=== PATIENT | female | born 1995 | race Caucasian/White ===

== ENCOUNTER → 2020-04-27 11:15 | Outpatient (CLI) | payer OTHER, SELFPAY ==
[2020-04-27 12:30] LABS: Glucose Challenge Gest 1H 50g 65 mg/dL (70-140)
== END ==
PROVIDERS: Visit Provider Obstetrics & Gynecology
DX: Z34.82 Encounter for supervision of other normal pregnancy, second trimester (principal)
CPT/HCPCS: 82950

== ENCOUNTER 2020-06-18 09:47 | Outpatient (CLI) | payer OTHER, SELFPAY ==
[2020-06-18 10:14] VITALS: BP 123/85; TEMP 36.4; O2SAT 99; BMI 26.4
[2020-06-18 10:25] LABS: Color, Urine Straw (Yellow); Glucose, Dipstick Normal (Normal); Ketone-Dipstick Negative (Negative); Leukocyte Esterase-Dipstick 25 /ul (Negative); Nitrite-Dipstick Negative (Negative); Occult Blood-Urine Negative /ul (Negative); Protein-Dipstick Negative (Negative); Specific Gravity, Urine 1.005 (1.002-1.030); Urine Bilirubin Dipstick Negative (Negative); Urine Clarity Sl. Cloudy (Clear); Urine Urobilinogen Normal (Normal)
--- NOTE | 2020-06-18 11:50 | OB.TRI.HP_ITS ---
- Problem List (1) 35 weeks gestation of Status: Acute (2) Labor, false ([place]) Status: Acute History of Present Illness Date of Service: 06/18/20 Was patient seen by the physician?: Yes Reason For Visit: RULE OUT LABOR Date of Service: 06/18/20 Final KALI: 07/21/20 Gestational age: 35 Weeks and 2 Days History of Present Illness: Woke up with back pain and pressure. Allergies No Known Allergies Allergy (Verified 06/18/20 10:16) Laboratory Studies: Laboratory Tests 06/18/20 Range/Units 10:15 Urine Color Straw (Yellow) Urine Clarity Sl. Cloudy (Clear) Urine pH 7.0 (5.0 - 8.0) Ur Specific [place] 1.005 (1.002-1.030) Urine Protein Negative (Negative) mg/dl Urine Glucose (UA) Normal (Normal) mg/dl Urine Ketones Negative (Negative) mg/dl Urine Occult Blood Negative (Negative) /ul Urine Nitrite Negative (Negative) Urine Bilirubin Negative (Negative) mg/dL Urine Urobilinogen Normal (Normal) mg/dl Ur Leukocyte Esterase 25 H (Negative) /ul Review of Systems Constitutional: Denies: Chills, Fever, Weight Change HEENT: Denies: Head Aches, Sinus Congestion, Sinus Drainage Cardiovascular: Denies: Chest Pain, Palpitations Respiratory: Denies: Cough, Shortness of breath at rest, Sputum production Gastrointestinal: Denies: Abdominal Pain, Nausea, Vomiting Genitourinary: Denies: Dysuria Musculoskeletal: Denies: Joint Pain, Joint Tenderness Skin: Denies: Rash, Wounds Neurological: Denies: Numbness, Tingling, Focal weakness Psychiatric: Denies: Anxiety, Depression, Homicidal Ideations, Suicidal Ideations Hematologic/ Lymphatic: Denies: Easy Bruising, Easy Bleeding Physical Exam Vitals: Vital Signs Temp BP Pulse Ox 97.5 F L 123/85 H 99 06/18/20 10:14 06/18/20 10:14 06/18/20 10:14 General: Alert, Oriented x3, No apparent distress HEENT: Atraumatic, Normocephalic. Negative for: Thyromegaly, Lymphadenopathy Cardiovascular: Regular rate, Regular Rhythm Lungs: Clear to auscultation Abdomen: Bowel Sounds Present, Gravid Neurological: Deep Tendon Reflexes 2+/4 and Symmetrical, Neuro grossly intact ENVIRONMENT COORDINATOR: Normal external genitalia. Negative for: Vulvar lesions Estimated gestational size: Appropriate for gestational size Presentation: Cephalic Cervix Dilation (cm): 0 Station: -3 Effacement (%): 0 NST - FHR Rate Baby A Baseline: 135 Variability:: Moderate, Marked Decelerations:: None NST Reactive:: Yes FHR Category:: Category I Uterine Activity:: Q5-10m irregular Impression/Plan A/P: at 35 weeks gestation here to rule out labor UC Q5-12m irregular, palpating mild NST Category I SVE ft/high/thick on arrival and after 2 hours no cervical change noted UA WNL Educated on hydrating and [place] horn vs real contractions To rest and call if UC get closer and stronger together Discharge home
== END 2020-06-18 12:00 | disposition home or self-care (01) ==
LOC: WPOUT 10:12 → WP 10:13
PROVIDERS: Referring Provider Obstetrics & Gynecology; Visit Provider Obstetrics & Gynecology
DX: O47.03 False labor before 37 completed weeks of gestation, third trimester (principal); Z3A.35 35 weeks gestation of pregnancy
CPT/HCPCS: 59025; 59050; 81002; 99218; G0378

== ENCOUNTER 2020-07-01 04:50 | Outpatient (CLI) | payer OTHER, SELFPAY ==
[2020-07-01 05:05] VITALS: BMI 26.9
[2020-07-01 05:08] VITALS: BP 127/74; PULSE 82; TEMP 36.2; O2SAT 98
--- NOTE | 2020-07-01 07:32 | OB.TRI.HP_ITS ---
<Josee Kam - Last Filed: 07/01/20 21:32> - Problem List (1) 37 weeks gestation of Status: Acute (2) Labor, false ([place]) Status: Acute History of Present Illness Date of Service: 07/01/20 Was patient seen by the physician?: Yes Reason For Visit: R/O Date of Service: 07/01/20 Final KALI: 07/21/20 Gestational age: 37 Weeks and 1 Days History of Present Illness: Reports contractions on and off since yesterday AM. Allergies No Known Allergies Allergy (Verified 07/01/20 05:49) Review of Systems Constitutional: Denies: Chills, Fever, Weight Change HEENT: Denies: Head Aches, Sinus Congestion, Sinus Drainage Cardiovascular: Denies: Chest Pain, Palpitations Respiratory: Denies: Cough, Shortness of breath at rest, Sputum production Gastrointestinal: Denies: Abdominal Pain, Nausea, Vomiting Genitourinary: Denies: Dysuria Musculoskeletal: Denies: Joint Pain, Joint Tenderness Skin: Denies: Rash, Wounds Neurological: Denies: Numbness, Tingling, Focal weakness Psychiatric: Denies: Anxiety, Depression, Homicidal Ideations, Suicidal Ideations Hematologic/ Lymphatic: Denies: Easy Bruising, Easy Bleeding Physical Exam Vitals: Vital Signs Temp Pulse BP Pulse Ox 97.1 F L 82 127/74 H 98 07/01/20 05:08 07/01/20 05:08 07/01/20 05:08 07/01/20 05:08 General: Alert, Oriented x3, No apparent distress HEENT: Atraumatic, Normocephalic. Negative for: Thyromegaly, Lymphadenopathy Cardiovascular: Regular rate, Regular Rhythm Lungs: Clear to auscultation Abdomen: Bowel Sounds Present, Gravid Neurological: Deep Tendon Reflexes 2+/4 and Symmetrical, Neuro grossly intact SOLAR PHOTOVOLTAIC ELECTRICIAN: Normal external genitalia. Negative for: Vulvar lesions Estimated gestational size: Appropriate for gestational size Presentation: Cephalic Cervix Dilation (cm): 1 Station: -3 Effacement (%): 25 NST - FHR Rate Baby A Baseline: 130 Variability:: Moderate Accelerations:: 15 x 15 Decelerations:: None NST Reactive:: Yes FHR Category:: Category I Uterine Activity:: irregular Q5-15m Impression/Plan A/P: at 37 weeks here to rule out labor SVE upon arrival , remains unchanged over the course of 2.5 hours UC irregular Q5-15m NST Category I Educated on [place] horn, false labor and early labor. Work excuse given for today To discharge home. Rest and hydrate. If UC become more regular at least every 7 minutes, lasting 1 minute for at least 1 hour to call. Will download contraction subhash to help time contractions. To call or return with any questions or concerns <Bryson Prasad - Last Filed: 07/03/20 15:56> Physical Exam Vitals: Vital Signs Temp Pulse BP Pulse Ox 97.1 F L 106 H 120/68 98 07/01/20 05:08 07/01/20 15:10 07/01/20 15:10 07/01/20 05:08 Impression/Plan Agree with above, pt with unchanged cervix, reassuring heart tones. Ruled out labor. D/c home with precautions as above
[2020-07-01 15:10] VITALS: BP 120/68; PULSE 106
== END 2020-07-01 07:30 | disposition home or self-care (01) ==
LOC: WPOUT 04:55 → WP 04:55
PROVIDERS: Visit Provider Obstetrics & Gynecology
DX: O47.1 False labor at or after 37 completed weeks of gestation (principal); Z3A.37 37 weeks gestation of pregnancy
CPT/HCPCS: 59025; 59050; 99218; G0378

== ENCOUNTER 2020-07-11 18:30 | Outpatient (CLI) | payer OTHER, SELFPAY ==
[2020-07-11 18:49] VITALS: BMI 27.3
[2020-07-11 19:20] VITALS: BP 134/81; PULSE 99; O2SAT 99
[2020-07-11 19:24] VITALS: TEMP 37.1; O2SAT 99
--- NOTE | 2020-07-11 19:31 | OB.TRI.HP_ITS ---
History of Present Illness Date of Service: 07/11/20 Was patient seen by the physician?: Yes Reason For Visit: Rule out rupture History of Present Illness: Leaking brown fluid into toilet this evening. None since that time. Reports contractions, but these have improved since arrival here. Reports movement. Allergies No Known Allergies Allergy (Verified 07/01/20 05:49) - Pertinent Past Medical History Medical History: Past Medical History (Last Updated 07/11/20 @ 19:[address] Tatiana Prasad, DO) Asthma HSV (herpes simplex virus) anogenital infection Labial cyst Review of Systems Constitutional: Denies: Chills, Fever Eyes: Denies: Blurred vision HEENT: Denies: Head Aches Cardiovascular: Denies: Chest Pain Respiratory: Denies: Shortness of Breath Genitourinary: Denies: Dysuria - + movement. Physical Exam Vitals: Vital Signs Temp Pulse BP Pulse Ox 98.8 F 99 134/81 H 99 07/11/20 19:24 07/11/20 19:20 07/11/20 19:20 07/11/20 19:24 General: Alert, Oriented x3, Cooperative, No apparent distress HEENT: Atraumatic, Normocephalic Lungs: Normal air movement Abdomen: Soft, Non Tender - Gravid Extremities:: No edema Neurological: Cranial nerves II-XII grossly intact MANAGER RESTAURANT: Vulvar lesions - enlarged left labial cyst Cervix Dilation (cm): 2 Station: -3 Effacement (%): 60 NST - FHR Rate Baby A Baseline: 150 Accelerations:: 15 x 15 Decelerations:: None NST Reactive:: Yes Impression/Plan 25 yo at 38.4w, KALI 07/21/20, presenting with leaking brown fluid. Pt complicated by: known labial cyst, history of childhood asthma, hx of HSV on suppression (last outbreak was 4 years ago). Not ruptured. status reassuring. Discharge home with precautions. Next apt is Saturday PM.
[2020-07-11 19:40] LABS: ROM Internal Control Test YES-OK TO RESULT pt. (Internal QC); ROM Patient Test Negative (Negative)
[2020-07-11 20:02] VITALS: BP 125/76; PULSE 92
== END 2020-07-11 21:13 | disposition home or self-care (01) ==
LOC: WPOUT 18:40 → OBT 18:41
PROVIDERS: Visit Provider Student in an Organized Health Care Education/Training Program
DX: Z34.03 Encounter for supervision of normal first pregnancy, third trimester (principal)
CPT/HCPCS: 59025; 59050; 84112; 99218; G0378

== ENCOUNTER 2020-07-13 18:55 | Inpatient (IN) | payer OTHER, SELFPAY ==
[2020-07-13 19:48] VITALS: BP 169/86; PULSE 112
[2020-07-13 19:49] VITALS: BP 147/74; PULSE 105; PULSE 84; TEMP 36.4; O2SAT 97
--- NOTE | 2020-07-13 19:56 | PCM.HP.OB ---
- Problem List (1) 39 weeks gestation of Status: Acute (2) Herpes simplex Status: Acute (3) Bartholin's gland cyst Status: Acute History Date of Admission: 07/13/20 Final KALI: 07/21/20 Final KALI Source: US <20 weeks Gestational age: 39 Weeks and 0 Days History of this : This is a 25 year-old, G [1], P [0], at 38.6 weeks gestational age. Medical History: Medical History (Last Updated 07/11/20 @ 19:[address] Tatiana Prasad, DO) Asthma J45.909 HSV (herpes simplex virus) anogenital infection A60.9 Labial cyst N90.7 Surgical History: Surgical History (Last Updated 07/11/20 @ 21:[address] Tatiana Prasad, DO) H/O wisdom tooth extraction K08.409 [place] teeth removed K08.409 Allergies No Known Allergies Allergy (Verified 07/01/20 05:49) Home Medications: Home Medications Albuterol IH (ProAir) [Proair Hfa] 1 puff INHALATION PRN PRN 06/18/20 Vits [Prenatabs FA ] 1 tab PO DAILY 06/18/20 Valacyclovir HCl [Valtrex] 1,000 mg PO DAILY 07/11/20 Alcohol: None Substance Use Type: Marijuana - 1st trimester Number of Fetus(es): 1 NST - FHR Rate Baby A Baseline: 150 Variability:: Moderate Accelerations:: 15 x 15 Decelerations:: None NST Reactive:: Yes FHR Category:: Category I Uterine Activity:: 1 in 10 minutes History Past Pregnancies: Past Pregnancies: None Labs: Mom's Microbiology 07/13/20 19:45 Perianal Abcess Gram Stain - Pending 07/13/20 19:45 Perianal Abcess Wound Culture - Pending Mom's Problem List Problem Status Onset Code 39 weeks gestation of Acute Z3A.39 Herpes simplex Acute B00.9 Bartholin's gland cyst Acute N75.0 Mom's Labs & Results 07/13/20 07/13/20 07/13/20 20:00 20:00 20:55 WBC 10.3 RBC 3.72 L Hgb 11.1 L Hct 33.4 L MCV 89.8 MCH 29.8 MCHC 33.2 RDW Std Deviation 41.5 RDW Coeff of Ashanti 12.8 Plt Count 326 MPV 10.4 Immature Gran % (Auto) 0.600 Neut % (Auto) 77.8 H Lymph % (Auto) 13.8 L [place] % (Auto) 6.2 Eos % (Auto) 1.4 Baso % (Auto) 0.2 Absolute Neuts (auto) 8.0 H Absolute Lymphs (auto) 1.41 Nucleated RBC % 0 Urine Opiates Screen NEGATIVE Urine Methadone Screen NEGATIVE Ur Barbiturates Screen NEGATIVE Ur Phencyclidine Scrn NEGATIVE Ur Amphetamines Screen NEGATIVE U Methamphetamin-MDMA NEGATIVE U Benzodiazepines Scrn NEGATIVE Urine Cocaine Screen NEGATIVE U Cannabinoids Screen NEGATIVE Ur Drug Screen Comment Blood Type O POSITIVE Antibody Screen NEGATIVE Course Did the patient receive Yes care? Labs Blood Type: O RH: POSITIVE RPR/VDRL/Syphilis Nonreactive Rubella status Immune HbSAg Negative Date Done: 12/17/19 Chlamydia Negative Gonorrhea Negative HIV/AIDS Non-Reactive Group B Strep: Negative Current Obstetrical History Gestational Diabetes No Incompetent Cervix No Infertility No IUGR No Macrosomia No Hypertension/Pre-eclampsia No Placenta Previa/Abruption No PTL/PROM No Uterine anomaly No Oligohydramnios No Polyhydramnios No Multiple gestation No Past Medical History Asthma Yes Diabetes No Hypertension No Heart disease No Mitral valve prolapse No Neurologic/Seizure disorder/ No Migraines Kidney disease No Liver disease No Varicosities No Clotting disorders/Hx of DVT No Thyroid Dysfunction No Other medical diseases No Psychiatric disorders No Major trauma No Abnormal PAP smear No Sleep apnea No Mammogram in the last 2 years No Social History Marital Status: SINGLE Alleged father Manuelito Hx Smoking Yes Smoking Status Former smoker Substance Use Type Marijuana Expected Delivery Method: Spontaneous Vaginal Number of Visits: 12 Review of Systems Constitutional: Denies: Chills, Fever, Weight Change HEENT: Denies: Head Aches, Sinus Congestion, Sinus Drainage Cardiovascular: Denies: Chest Pain, Palpitations Respiratory: Denies: Cough, Shortness of breath at rest, Sputum production Gastrointestinal: Denies: Abdominal Pain, Nausea, Vomiting Genitourinary: Denies: Dysuria Musculoskeletal: Denies: Joint Pain, Joint Tenderness Skin: Reports: - - left bartholin cyst with drainage cultured. Denies: Rash, Wounds Neurological: Denies: Numbness, Tingling, Focal weakness Psychiatric: Denies: Anxiety, Depression, Homicidal Ideations, Suicidal Ideations Hematologic/ Lymphatic: Denies: Easy Bruising, Easy Bleeding Physical Exam Vitals: Vital Signs Pulse BP 105 H 147/74 H 07/13/20 19:49 07/13/20 19:49 General: Alert, Oriented x3, No apparent distress HEENT: Atraumatic, Normocephalic. Negative for: Thyromegaly, Lymphadenopathy Cardiovascular: Regular rate, Regular Rhythm Lungs: Clear to auscultation Abdomen: Bowel Sounds Present, Gravid Neurological: Deep Tendon Reflexes 2+/4 and Symmetrical, Neuro grossly intact GAMBLING SUPERVISOR: Normal external genitalia. Negative for: Vulvar lesions Estimated gestational size: Appropriate for gestational size Presentation: Cephalic Cervix Dilation (cm): 1.5 Station: -2 Effacement (%): 50 Assessment/Plan All Active Problems (Last Updated 07/11/20 @ 19:[address] Tatiana Prasad, DO) 35 weeks gestation of (Acute) Labor, false ([facility]) (Acute) 37 weeks gestation of (Acute) 39 weeks gestation of (Acute) Herpes simplex (Acute) Bartholin's gland cyst (Acute) A/P: This is a 25 year-old, G [1], P [0], at 38.6 weeks gestational age. Elective IOL for maternal discomfort with left bartholin gland cyst infection IV PCN for antibiotic coverage SVE 1.5/50/-2 soft midposition Irregular contractions NST Category I Cytotec PO for IOL Epidural planned for labor MD plans to perform marsupialization of cyst after delivery Expect Procedure Criteria Procedure Type: Elective COVID Risk Discussion: The surgeon/proceduralist and patient have discussed in detail the risk of exposure to and/or potential harm posed by the COVID-19 virus with having a surgery/procedure at this time versus the risk of delaying the surgery/procedure. It is not possible to know either the risk of delaying the surgery or procedure or chance of getting an infection with perfect accuracy, but a joint decision was made between the patient and the surgeon/proceduralist to proceed at this time with the scheduled surgery/procedure as indicated on the consent form.
[2020-07-13] MEDS: Lactated Ringers 1,000 ML 50 ML IV (20:00)
[2020-07-13 20:20] VITALS: BMI 27.4
[2020-07-13] MEDS: miSOPROStol 25 MCG TABLET PO (20:30)
[2020-07-13 20:37] LABS: Absolute Lymphocyte Count 1.41 X10^3/uL (0.83-4.51); Basophil# 0.02 X10^3/uL; Basophil% 0.2 % (0-1); Eosinophil# 0.14 X10^3/uL; Eosinophils% 1.4 % (0-5); Hematocrit 33.4 % (37-47); Hemoglobin 11.1 g/dL (12.0-15.0); Lymphocyte # 1.41 X10^3/ul (4.0); Lymphocyte % 13.8 % (19-41); Mean Corp Hgb Conc 33.2 g/dL (32-36); Mean Corpuscular Hgb 29.8 pg (27.0-32.0); Mean Corpuscular Volume 89.8 fL (81-99); Mean Platelet Vol. 10.4 fl (6.2-12.0); Monocyte# 0.64 X10^3/uL; Monocyte% 6.2 % (0-10); NRBC Flagged by Analyzer 0 % (0-5); Neutrophil # 7.98 X10^3/uL (2.7-7.7); Neutrophil % 77.8 % (47-70); Platelet Count 326 K/mm3 (150-450); RBC Distribution Width CV 12.8 % (11.6-14.6); RBC Distribution Width SD 41.5 fl (35.1-43.9); Red Blood Count 3.72 M/mm3 (4.2-5.4); White Blood Count 10.3 K/mm3 (4.4-11.0)
[2020-07-13 22:02] LABS: Amphetamine Urine VISTA NEGATIVE (<1000 ng/mL); Barbiturate Urine VISTA NEGATIVE (< 200 ng/mL); Benzodiazepine Urine VISTA NEGATIVE (< 200 ng/mL); Cocaine Urine VISTA NEGATIVE (< 300 ng/mL); Ecstacy Urine VISTA NEGATIVE (< 500 ng/mL); Methadone Urine VISTA NEGATIVE (< 300 ng/mL); PCP Urine VISTA NEGATIVE (< 25 ng/mL); THC Urine VISTA NEGATIVE (< 50 ng/mL); Vista UDS pH Range 6
[2020-07-14] VITALS (32 sets, daily range): BP systolic 110–145; BP diastolic 59–82; PULSE 73–116; TEMP 36–37.3; O2SAT 82–100
[2020-07-14] MEDS: Morphine 4 MG/ML Syringe IV (00:22)
[2020-07-14] MEDS: miSOPROStol 25 MCG TABLET PO (00:22)
--- NOTE | 2020-07-14 08:19 | PCM.PN.OB ---
Patient Problems: Active and Suspected Problems (Last Updated 07/11/20 @ 19:[address] Tatiana Prasad, DO) 39 weeks gestation of (Acute) Herpes simplex (Acute) Bartholin's gland cyst (Acute) Subjective: Hasn't gotten any sleep overnight, so very tired. Contractions are not that painful 3/10 at their worst and they have spaced out. Would still like the epidural when possible. Objective: VSS. SVE 2/70/-2 soft midposition with outer os being very thin. UC Q5-7m irregular. FHR baseline 130, +accels, -decels, moderate variability. Bartholin cyst appears stable. - Physical Exam Vitals/I&O's: Vital Signs Temp Pulse BP Pulse Ox 97.7 F L 81 131/70 H 98 07/14/20 07:18 07/14/20 07:19 07/14/20 07:19 07/14/20 07:18 Weight: 74.843 kg Body Mass Index (BMI) 27.4 Intake and Output for Last 24 Hours 07/12/20 07/13/20 07/14/20 23:59 23:59 23:59 Intake Total 150 / 150 100 / 100 Output Total 400 / 400 Balance 150 / 150 -300 / -300 General: Alert, Oriented x3, Cooperative HEENT: Atraumatic, PERRLA, EOMI, Normocephalic Neck: Supple, No JVD, Negative Carotid Bruits Lungs: Clear to auscultation, Normal air movement Cardiovascular: Regular rate, No murmurs Abdomen: Bowel Sounds Present, Soft, Non Tender Extremities: No edema, Capillary Refill Less than 3 Seconds Skin: No rashes, No breakdown Musculoskeletal: No Tenderness to Palpation of Joints or Extremities Neurological: Cranial nerves II-XII grossly intact Psych/Mental Status: Normal Affect, Appropriate Laboratory Results 07/13/20 20:00: WBC 10.3, RBC 3.72 L, Hgb 11.1 L, Hct 33.4 L, MCV 89.8, MCH 29.8, MCHC 33.2, RDW Std Deviation 41.5, RDW Coeff of [place] 12.8, Plt Count 326, MPV 10.4, Immature Gran % (Auto) 0.600, Neut % (Auto) 77.8 H, Lymph % (Auto) 13.8 L, [place] % (Auto) 6.2, Eos % (Auto) 1.4, Baso % (Auto) 0.2, Absolute Neuts (auto) 8.0 H, Absolute Lymphs (auto) 1.41, Nucleated RBC % 0 07/13/20 20:00: Blood Type O POSITIVE, Antibody Screen NEGATIVE 07/13/20 20:55: Urine Opiates Screen NEGATIVE, Urine Methadone Screen NEGATIVE, Ur Barbiturates Screen NEGATIVE, Ur Phencyclidine Scrn NEGATIVE, Ur Amphetamines Screen NEGATIVE, U Methamphetamin-MDMA NEGATIVE, U Benzodiazepines Scrn NEGATIVE, Urine Cocaine Screen NEGATIVE, U Cannabinoids Screen NEGATIVE, Ur Drug Screen Comment Current Medications Acetaminophen (Tylenol) 325 - 650 mg PO Q4H PRN PRN PRN Reason: Pain Score 1-3/10 Al Hydroxide/Mg Hydroxide (Mylanta Ii) 15 - 30 ml PO Q4H PRN PRN PRN Reason: INDIGESTION Citric Acid/Sodium Citrate (Bicitra) 30 ml PO X1 PRN PRN Reason: Section Fentanyl Citrate (Sublimaze (100mcg Ampule)) 25 - 50 mcg IV Q2H PRN PRN PRN Reason: Pain Score 4-10/10 Lactated Ringer's () 500 mls @ 999 mls/hr IV .Q31M PRN PRN Reason: Epidural Lactated Ringer's () 500 mls @ 999 mls/hr IV .Q31M PRN PRN Reason: Corrective Measures Lactated Ringer's () 1,000 mls @ 50 mls/hr IV .Q20H [facility] Last Infusion: 07/13/20 22:00 Dose: 0 mls/hr Documented by: Penicillin G Potassium/Dextrose (Penicillin G Potassium) 3 mu in 50 mls @ 100 mls/hr IV Q4H [facility] Last Infusion: 07/14/20 05:06 Dose: Infused Documented by: Oxytocin/Sodium Chloride () 30 units in 500 mls @ 2 mls/hr IV .Q250H [facility] Misoprostol (Cytotec) 25 mcg PO Q4H [facility] Last Admin: 07/14/20 08:05 Dose: Not Given Documented by: Ondansetron HCl (Zofran) 4 mg IV Q4H PRN PRN PRN Reason: NAUSEA Prochlorperazine Edisylate (Compazine Iv) 10 mg IV Q6H PRN PRN PRN Reason: NAUSEA Sodium Chloride () 10 - 40 ml IV X1 PRN PRN Reason: SALINE FLUSH Medical Necessity - Tobacco Use Smoking Status: Former smoker Assessment/Plan All Active Problems (Last Updated 07/11/20 @ 19:[address] Tatiana Prasad, DO) 35 weeks gestation of (Acute) Labor, false ([place]) (Acute) 37 weeks gestation of (Acute) 39 weeks gestation of (Acute) Herpes simplex (Acute) Bartholin's gland cyst (Acute) A/P: SVE only slightly changed UC have spaced out, will start Pitocin NST Category I Plans epidural for pain management Will AROM after epidural is placed Continue IV antibiotics, awaiting cultures from cyst Expect Marsupialization planned by MD attending after delivery
[2020-07-14] MEDS: Oxytocin 30 units/NS 500 ml 30 UNITS/500 ML IV.SOLN IV (08:46)
[2020-07-14] MEDS: Lactated Ringers 1,000 ML 50 ML IV (11:09)
[2020-07-14] MEDS: Lactated Ringers 500 ML 999 ML IV ×2 (11:10→13:22)
--- NOTE | 2020-07-14 12:15 | PCM.PN.OB ---
Patient Problems: Active and Suspected Problems (Last Updated 07/11/20 @ 19:[address] Tatiana Prasad, DO) 39 weeks gestation of (Acute) Herpes simplex (Acute) Bartholin's gland cyst (Acute) Subjective: Contractions are feeling stronger. Ready to get water broke and then wanting the epidural. Objective: SVE 2/70/-2 stretchy. AROM with clear fluid. FHR baseline 140. +accels, - decels, moderate variability. - Physical Exam Vitals/I&O's: Vital Signs Temp Pulse BP Pulse Ox 97.3 F L 92 130/74 H 100 07/14/20 14:35 07/14/20 14:35 07/14/20 14:35 07/14/20 14:35 Weight: 74.843 kg Body Mass Index (BMI) 27.4 Intake and Output for Last 24 Hours 07/12/20 07/13/20 07/14/20 23:59 23:59 23:59 Intake Total 150 / 150 2530.30 / 2530.30 Output Total 1250 / 1250 Balance 150 / 150 1280.30 / 1280.30 General: Alert, Oriented x3, Cooperative HEENT: Atraumatic, PERRLA, EOMI, Normocephalic Neck: Supple, No JVD, Negative Carotid Bruits Lungs: Clear to auscultation, Normal air movement Cardiovascular: Regular rate, No murmurs Abdomen: Bowel Sounds Present, Soft, Non Tender Extremities: No edema, Capillary Refill Less than 3 Seconds Skin: No rashes, No breakdown Musculoskeletal: No Tenderness to Palpation of Joints or Extremities Neurological: Cranial nerves II-XII grossly intact Psych/Mental Status: Normal Affect, Appropriate Microbiology Past 72 Hours 07/13/20 19:45 Perianal Abcess Gram Stain - Final 07/13/20 19:45 Perianal Abcess Wound Culture - Preliminary Mixed Gram Positive Organisms Laboratory Results 07/13/20 20:00: WBC 10.3, RBC 3.72 L, Hgb 11.1 L, Hct 33.4 L, MCV 89.8, MCH 29.8, MCHC 33.2, RDW Std Deviation 41.5, RDW Coeff of [place] 12.8, Plt Count 326, MPV 10.4, Immature Gran % (Auto) 0.600, Neut % (Auto) 77.8 H, Lymph % (Auto) 13.8 L, [place] % (Auto) 6.2, Eos % (Auto) 1.4, Baso % (Auto) 0.2, Absolute Neuts (auto) 8.0 H, Absolute Lymphs (auto) 1.41, Nucleated RBC % 0 07/13/20 20:00: Blood Type O POSITIVE, Antibody Screen NEGATIVE 07/13/20 20:55: Urine Opiates Screen NEGATIVE, Urine Methadone Screen NEGATIVE, Ur Barbiturates Screen NEGATIVE, Ur Phencyclidine Scrn NEGATIVE, Ur Amphetamines Screen NEGATIVE, U Methamphetamin-MDMA NEGATIVE, U Benzodiazepines Scrn NEGATIVE, Urine Cocaine Screen NEGATIVE, U Cannabinoids Screen NEGATIVE, Ur Drug Screen Comment Current Medications Acetaminophen (Tylenol) 325 - 650 mg PO Q4H PRN PRN PRN Reason: Pain Score 1-3/10 Al Hydroxide/Mg Hydroxide (Mylanta Ii) 15 - 30 ml PO Q4H PRN PRN PRN Reason: INDIGESTION Citric Acid/Sodium Citrate (Bicitra) 30 ml PO X1 PRN PRN Reason: Section Ephedrine Sulfate () 10 mg IV Q10M PRN PRN Reason: hypotension Ephedrine Sulfate () 10 mg IM Q30M PRN PRN Reason: hypotension Fentanyl Citrate (Sublimaze (100mcg Ampule)) 25 - 50 mcg IV Q2H PRN PRN PRN Reason: Pain Score 4-10/10 Fentanyl/Bupivacaine/Sodium Chlor () 0 ml EPIDURAL UD COUNTS INCLUDE 234 BEDS AT THE [facility]; Protocol Last Admin: 07/14/20 12:40 Dose: 100 ml Documented by: Lactated Ringer's () 500 mls @ 999 mls/hr IV .Q31M PRN PRN Reason: Epidural Last Infusion: 07/14/20 11:41 Dose: Infused Documented by: Lactated Ringer's () 500 mls @ 999 mls/hr IV .Q31M PRN PRN Reason: Corrective Measures Last Infusion: 07/14/20 13:53 Dose: Infused Documented by: Lactated Ringer's () 1,000 mls @ 50 mls/hr IV .Q20H [facility] Last Infusion: 07/14/20 14:31 Dose: 0 mls/hr Documented by: Oxytocin/Sodium Chloride () 30 units in 500 mls @ 2 mls/hr IV .Q250H [facility] Last Infusion: 07/14/20 14:32 Dose: 8 mls/hr Documented by: Naloxone HCl 4 mg/ Dextrose 504 mls @ 0 mls/hr IV .Q0M PRN; Protocol PRN Reason: To maintain Resp. rate >10 Clindamycin Phosphate 600 mg/ (Dextrose) 54 mls @ 100 mls/hr IV Q8 [facility] Last Admin: 07/14/20 14:31 Dose: 100 mls/hr Documented by: Naloxone HCl (Narcan) 0.02 mg IV Q1M PRN PRN Reason: RR< 10 AND PT UNRESPONSIVE Ondansetron HCl (Zofran) 4 mg IV Q4H PRN PRN PRN Reason: NAUSEA Prochlorperazine Edisylate (Compazine Iv) 10 mg IV Q6H PRN PRN PRN Reason: NAUSEA Sodium Chloride () 10 - 40 ml IV X1 PRN PRN Reason: SALINE FLUSH Medical Necessity - Tobacco Use Smoking Status: Former smoker Assessment/Plan All Active Problems (Last Updated 07/11/20 @ 19:[address] Tatiana Prasad, DO) 35 weeks gestation of (Acute) Labor, false ([place]) (Acute) 37 weeks gestation of (Acute) 39 weeks gestation of (Acute) Herpes simplex (Acute) Bartholin's gland cyst (Acute) A/P: NST Category I UC Q5m AROM with clear fluid Pitocin at 4u Planning epidural for pain management Will have RN recheck SVE in 2 hours
[2020-07-14] MEDS: fentaNYL-bupivacaine (epidural) 100 ML BAG EPIDURAL ×3 (12:40→21:19)
--- NOTE | 2020-07-14 18:20 | PCM.PN.OB ---
Patient Problems: Active and Suspected Problems (Last Updated 07/11/20 @ 19:[address] Tatiana Prasad, DO) 39 weeks gestation of (Acute) Herpes simplex (Acute) Bartholin's gland cyst (Acute) Subjective: Not feeling any pain. Denies concerns. Objective: VSS. SVE 3.5-4/90/0. UC Q2-3m. FHR baseline 135, +accels, -decels, moderate variability with Pitocin shut off. - Physical Exam Vitals/I&O's: Vital Signs Temp Pulse BP Pulse Ox 98.3 F 96 128/78 H 98 07/14/20 17:32 07/14/20 17:32 07/14/20 17:32 07/14/20 17:32 Weight: 74.843 kg Body Mass Index (BMI) 27.4 Intake and Output for Last 24 Hours 07/12/20 07/13/20 07/14/20 23:59 23:59 23:59 Intake Total 150 / 150 3102.97 / 3102.97 Output Total 2550 / 2550 Balance 150 / 150 552.97 / 552.97 General: Alert, Oriented x3, Cooperative HEENT: Atraumatic, PERRLA, EOMI, Normocephalic Neck: Supple, No JVD, Negative Carotid Bruits Lungs: Clear to auscultation, Normal air movement Cardiovascular: Regular rate, No murmurs Abdomen: Bowel Sounds Present, Soft, Non Tender Extremities: No edema, Capillary Refill Less than 3 Seconds Skin: No rashes, No breakdown Musculoskeletal: No Tenderness to Palpation of Joints or Extremities Neurological: Cranial nerves II-XII grossly intact Psych/Mental Status: Normal Affect, Appropriate Microbiology Past 72 Hours 07/13/20 19:45 Perianal Abcess Gram Stain - Final 07/13/20 19:45 Perianal Abcess Wound Culture - Preliminary Mixed Gram Positive Organisms Laboratory Results 07/13/20 20:00: WBC 10.3, RBC 3.72 L, Hgb 11.1 L, Hct 33.4 L, MCV 89.8, MCH 29.8, MCHC 33.2, RDW Std Deviation 41.5, RDW Coeff of [place] 12.8, Plt Count 326, MPV 10.4, Immature Gran % (Auto) 0.600, Neut % (Auto) 77.8 H, Lymph % (Auto) 13.8 L, [place] % (Auto) 6.2, Eos % (Auto) 1.4, Baso % (Auto) 0.2, Absolute Neuts (auto) 8.0 H, Absolute Lymphs (auto) 1.41, Nucleated RBC % 0 07/13/20 20:00: Blood Type O POSITIVE, Antibody Screen NEGATIVE 07/13/20 20:55: Urine Opiates Screen NEGATIVE, Urine Methadone Screen NEGATIVE, Ur Barbiturates Screen NEGATIVE, Ur Phencyclidine Scrn NEGATIVE, Ur Amphetamines Screen NEGATIVE, U Methamphetamin-MDMA NEGATIVE, U Benzodiazepines Scrn NEGATIVE, Urine Cocaine Screen NEGATIVE, U Cannabinoids Screen NEGATIVE, Ur Drug Screen Comment Current Medications Acetaminophen (Tylenol) 325 - 650 mg PO Q4H PRN PRN PRN Reason: Pain Score 1-3/10 Al Hydroxide/Mg Hydroxide (Mylanta Ii) 15 - 30 ml PO Q4H PRN PRN PRN Reason: INDIGESTION Citric Acid/Sodium Citrate (Bicitra) 30 ml PO X1 PRN PRN Reason: Section Ephedrine Sulfate () 10 mg IV Q10M PRN PRN Reason: hypotension Ephedrine Sulfate () 10 mg IM Q30M PRN PRN Reason: hypotension Fentanyl Citrate (Sublimaze (100mcg Ampule)) 25 - 50 mcg IV Q2H PRN PRN PRN Reason: Pain Score 4-10/10 Fentanyl/Bupivacaine/Sodium Chlor () 0 ml EPIDURAL UD [facility]; Protocol Last Admin: 07/14/20 16:49 Dose: 100 ml Documented by: Lactated Ringer's () 500 mls @ 999 mls/hr IV .Q31M PRN PRN Reason: Epidural Last Infusion: 07/14/20 11:41 Dose: Infused Documented by: Lactated Ringer's () 500 mls @ 999 mls/hr IV .Q31M PRN PRN Reason: Corrective Measures Last Infusion: 07/14/20 13:53 Dose: Infused Documented by: Lactated Ringer's () 1,000 mls @ 50 mls/hr IV .Q20H [facility] Last Infusion: 07/14/20 15:04 Dose: 200 mls/hr Documented by: Oxytocin/Sodium Chloride () 30 units in 500 mls @ 2 mls/hr IV .Q250H [facility] Last Infusion: 07/14/20 17:28 Dose: 2 mls/hr Documented by: Naloxone HCl 4 mg/ Dextrose 504 mls @ 0 mls/hr IV .Q0M PRN; Protocol PRN Reason: To maintain Resp. rate >10 Clindamycin Phosphate 600 mg/ (Dextrose) 54 mls @ 100 mls/hr IV Q8 [facility] Last Infusion: 07/14/20 15:04 Dose: Infused Documented by: Naloxone HCl (Narcan) 0.02 mg IV Q1M PRN PRN Reason: RR< 10 AND PT UNRESPONSIVE Ondansetron HCl (Zofran) 4 mg IV Q4H PRN PRN PRN Reason: NAUSEA Prochlorperazine Edisylate (Compazine Iv) 10 mg IV Q6H PRN PRN PRN Reason: NAUSEA Sodium Chloride () 10 - 40 ml IV X1 PRN PRN Reason: SALINE FLUSH Medical Necessity - Tobacco Use Smoking Status: Former smoker Assessment/Plan All Active Problems (Last Updated 07/11/20 @ 19:[address] Tatiana Prasad, DO) 35 weeks gestation of (Acute) Labor, false (Ba-Horn) (Acute) 37 weeks gestation of (Acute) 39 weeks gestation of (Acute) Herpes simplex (Acute) Bartholin's gland cyst (Acute) A/P: NST Category I with Pitocin turned off UC Q2-3m SVE 3.5-490/0 Will wait 2H and recheck SVE Updated Dr. Loya attending Expect
[2020-07-14] MEDS: Lactated Ringers 1,000 ML 200 ML IV (19:33)
--- NOTE | 2020-07-14 22:20 | PN.OBGYN_ITS ---
Patient Problems: Active and Suspected Problems (Last Updated 07/11/20 @ 19:[address] Tatiana Prasad, DO) 39 weeks gestation of (Acute) Herpes simplex (Acute) Bartholin's gland cyst (Acute) Subjective: Comfortable right now. Would like to sleep. Objective: VSS. SVE 5-6/90/0. FHR baseline 140, +accels, -decels, moderate variability. - Physical Exam Vitals/I&O's: Vital Signs Temp Pulse BP Pulse Ox 99.1 F 116 H 125/74 H 100 07/14/20 21:26 07/14/20 21:26 07/14/20 21:26 07/14/20 21:26 Weight: 74.843 kg Body Mass Index (BMI) 27.4 Intake and Output for Last 24 Hours 07/12/20 07/13/20 07/14/20 23:59 23:59 23:59 Intake Total 150 / 150 5080.20 / 5080.20 Output Total 3150 / 3150 Balance 150 / 150 1930.20 / 1930.20 General: Alert, Oriented x3, Cooperative HEENT: Atraumatic, PERRLA, EOMI, Normocephalic Neck: Supple, No JVD, Negative Carotid Bruits Lungs: Clear to auscultation, Normal air movement Cardiovascular: Regular rate, No murmurs Abdomen: Bowel Sounds Present, Soft, Non Tender Extremities: No edema, Capillary Refill Less than 3 Seconds Skin: No rashes, No breakdown Musculoskeletal: No Tenderness to Palpation of Joints or Extremities Neurological: Cranial nerves II-XII grossly intact Psych/Mental Status: Normal Affect, Appropriate Microbiology Past 72 Hours 07/13/20 19:45 Perianal Abcess Gram Stain - Final 07/13/20 19:45 Perianal Abcess Wound Culture - Preliminary Mixed Gram Positive Organisms Current Medications Acetaminophen (Tylenol) 325 - 650 mg PO Q4H PRN PRN PRN Reason: Pain Score 1-3/10 Al Hydroxide/Mg Hydroxide (Mylanta Ii) 15 - 30 ml PO Q4H PRN PRN PRN Reason: INDIGESTION Citric Acid/Sodium Citrate (Bicitra) 30 ml PO X1 PRN PRN Reason: Section Ephedrine Sulfate () 10 mg IV Q10M PRN PRN Reason: hypotension Ephedrine Sulfate () 10 mg IM Q30M PRN PRN Reason: hypotension Fentanyl Citrate (Sublimaze (100mcg Ampule)) 25 - 50 mcg IV Q2H PRN PRN PRN Reason: Pain Score 4-10/10 Fentanyl/Bupivacaine/Sodium Chlor () 0 ml EPIDURAL UD [facility]; Protocol Last Admin: 07/14/20 21:19 Dose: 100 ml Documented by: Lactated Ringer's () 500 mls @ 999 mls/hr IV .Q31M PRN PRN Reason: Epidural Last Infusion: 07/14/20 11:41 Dose: Infused Documented by: Lactated Ringer's () 500 mls @ 999 mls/hr IV .Q31M PRN PRN Reason: Corrective Measures Last Infusion: 07/14/20 13:53 Dose: Infused Documented by: Lactated Ringer's () 1,000 mls @ 50 mls/hr IV .Q20H [facility] Last Infusion: 07/14/20 22:07 Dose: 0 mls/hr Documented by: Oxytocin/Sodium Chloride () 30 units in 500 mls @ 2 mls/hr IV .Q250H [facility] Last Infusion: 07/14/20 18:10 Dose: 0 mls/hr Documented by: Naloxone HCl 4 mg/ Dextrose 504 mls @ 0 mls/hr IV .Q0M PRN; Protocol PRN Reason: To maintain Resp. rate >10 Clindamycin Phosphate 600 mg/ (Dextrose) 54 mls @ 100 mls/hr IV Q8 [facility] Last Admin: 07/14/20 22:07 Dose: 100 mls/hr Documented by: Naloxone HCl (Narcan) 0.02 mg IV Q1M PRN PRN Reason: RR< 10 AND PT UNRESPONSIVE Ondansetron HCl (Zofran) 4 mg IV Q4H PRN PRN PRN Reason: NAUSEA Prochlorperazine Edisylate (Compazine Iv) 10 mg IV Q6H PRN PRN PRN Reason: NAUSEA Sodium Chloride () 10 - 40 ml IV X1 PRN PRN Reason: SALINE FLUSH Medical Necessity - Tobacco Use Smoking Status: Former smoker Assessment/Plan All Active Problems (Last Updated 07/11/20 @ 19:[address] Tatiana Prasad, DO) 35 weeks gestation of (Acute) Labor, false (Guthrie-Horn) (Acute) 37 weeks gestation of (Acute) 39 weeks gestation of (Acute) Herpes simplex (Acute) Bartholin's gland cyst (Acute) A/P: SVE 5-/0 NST Category I UC 2-5m To leave Pitocin off Recheck SVE in 4 hours Expect
[2020-07-15] VITALS (32 sets, daily range): BP systolic 113–160; BP diastolic 56–75; PULSE 79–148; RESP 16–18; TEMP 36.1–37.3; O2SAT 82–100
[2020-07-15] MEDS: Lactated Ringers 1,000 ML 200 ML IV ×3 (00:42→10:48)
[2020-07-15] MEDS: fentaNYL-bupivacaine (epidural) 100 ML BAG EPIDURAL ×2 (01:52→06:38)
--- NOTE | 2020-07-15 04:48 | PN.OBGYN_ITS ---
Patient Problems: Active and Suspected Problems (Last Updated 07/15/20 @ 00:[address] Gabbi Green MD) 39 weeks gestation of (Acute) Bartholin's gland cyst (Acute) Subjective: Tired, but doing well. Still no pain with epidural. Objective: VSS. SVE 9.5/90/0 with anterior lip 10 oclock to 1 oclock. Labial edema noted bilaterally. FHR baseline 130. UC Q2-3m - Physical Exam Vitals/I&O's: Vital Signs Temp Pulse BP Pulse Ox 97.9 F 103 H 146/69 H 100 07/15/20 04:10 07/15/20 04:10 07/15/20 04:10 07/15/20 04:10 Weight: 74.843 kg Body Mass Index (BMI) 27.4 Intake and Output for Last 24 Hours 07/13/20 07/14/20 07/15/20 23:59 23:59 23:59 Intake Total 150 / 150 5334.20 / 5334.20 606.67 / 606.67 Output Total 3700 / 3700 1000 / 1000 Balance 150 / 150 1634.20 / 1634.20 -393.33 / -393.33 General: Alert, Oriented x3, Cooperative HEENT: Atraumatic, PERRLA, EOMI, Normocephalic Neck: Supple, No JVD, Negative Carotid Bruits Lungs: Clear to auscultation, Normal air movement Cardiovascular: Regular rate, No murmurs Abdomen: Bowel Sounds Present, Soft, Non Tender Extremities: No edema, Capillary Refill Less than 3 Seconds Skin: No rashes, No breakdown Musculoskeletal: No Tenderness to Palpation of Joints or Extremities Neurological: Cranial nerves II-XII grossly intact Psych/Mental Status: Normal Affect, Appropriate Microbiology Past 72 Hours 07/13/20 19:45 Perianal Abcess Gram Stain - Final 07/13/20 19:45 Perianal Abcess Wound Culture - Preliminary Mixed Gram Positive Organisms Current Medications Acetaminophen (Tylenol) 325 - 650 mg PO Q4H PRN PRN PRN Reason: Pain Score 1-3/10 Al Hydroxide/Mg Hydroxide (Mylanta Ii) 15 - 30 ml PO Q4H PRN PRN PRN Reason: INDIGESTION Citric Acid/Sodium Citrate (Bicitra) 30 ml PO X1 PRN PRN Reason: Section Ephedrine Sulfate () 10 mg IV Q10M PRN PRN Reason: hypotension Ephedrine Sulfate () 10 mg IM Q30M PRN PRN Reason: hypotension Fentanyl Citrate (Sublimaze (100mcg Ampule)) 25 - 50 mcg IV Q2H PRN PRN PRN Reason: Pain Score 4-10/10 Fentanyl/Bupivacaine/Sodium Chlor () 0 ml EPIDURAL UD [facility]; Protocol Last Admin: 07/15/20 01:52 Dose: 100 ml Documented by: Lactated Ringer's () 500 mls @ 999 mls/hr IV .Q31M PRN PRN Reason: Epidural Last Infusion: 07/14/20 11:41 Dose: Infused Documented by: Lactated Ringer's () 500 mls @ 999 mls/hr IV .Q31M PRN PRN Reason: Corrective Measures Last Infusion: 07/14/20 13:53 Dose: Infused Documented by: Lactated Ringer's () 1,000 mls @ 50 mls/hr IV .Q20H [facility] Last Admin: 07/15/20 00:42 Dose: 200 mls/hr Documented by: Oxytocin/Sodium Chloride () 30 units in 500 mls @ 2 mls/hr IV .Q250H [facility] Last Infusion: 07/14/20 18:10 Dose: 0 mls/hr Documented by: Naloxone HCl 4 mg/ Dextrose 504 mls @ 0 mls/hr IV .Q0M PRN; Protocol PRN Reason: To maintain Resp. rate >10 Clindamycin Phosphate 600 mg/ (Dextrose) 54 mls @ 100 mls/hr IV Q8 [facility] Last Infusion: 07/14/20 22:40 Dose: Infused Documented by: Naloxone HCl (Narcan) 0.02 mg IV Q1M PRN PRN Reason: RR< 10 AND PT UNRESPONSIVE Ondansetron HCl (Zofran) 4 mg IV Q4H PRN PRN PRN Reason: NAUSEA Prochlorperazine Edisylate (Compazine Iv) 10 mg IV Q6H PRN PRN PRN Reason: NAUSEA Sodium Chloride () 10 - 40 ml IV X1 PRN PRN Reason: SALINE FLUSH Medical Necessity - Tobacco Use Smoking Status: Former smoker Assessment/Plan All Active Problems (Last Updated 07/15/20 @ 00:[address] Gabbi Green MD) 39 weeks gestation of (Acute) Herpes simplex (Acute) Bartholin's gland cyst (Acute) A/P: SVE 9.5/90/0 NST Category I UC Q2-3m IV Benadryl 50mg x 1 Ice pack to be applied to external vagina for edema Will reassess SVE at 0600 to begin pushing Expect
[2020-07-15] MEDS: DiphenhydrAMINE 50 MG/ML Syringe IV (05:14)
--- NOTE | 2020-07-15 08:56 | PCM.PN.OB ---
Patient Problems: Active and Suspected Problems (Last Updated 07/15/20 @ 00:[address] Gabbi Green MD) 39 weeks gestation of (Acute) Bartholin's gland cyst (Acute) Subjective: Tired from the Benadryl, but doing well. Denies pain. Objective: VSS. SVE 10/100/0-+1. UC Q4-5m. FHR baseline 150, +accels, -decels, moderate variability. - Physical Exam Vitals/I&O's: Vital Signs Temp Pulse BP Pulse Ox 98.6 F 105 H 128/75 H 100 07/15/20 07:16 07/15/20 08:15 07/15/20 08:15 07/15/20 08:15 Weight: 74.843 kg Body Mass Index (BMI) 27.4 Intake and Output for Last 24 Hours 07/13/20 07/14/20 07/15/20 23:59 23:59 23:59 Intake Total 150 / 150 5334.20 / 5334.20 1780.67 / 1780.67 Output Total 3700 / 3700 1000 / 1000 Balance 150 / 150 1634.20 / 1634.20 780.67 / 780.67 General: Alert, Oriented x3, Cooperative HEENT: Atraumatic, PERRLA, EOMI, Normocephalic Neck: Supple, No JVD, Negative Carotid Bruits Lungs: Clear to auscultation, Normal air movement Cardiovascular: Regular rate, No murmurs Abdomen: Bowel Sounds Present, Soft, Non Tender Extremities: No edema, Capillary Refill Less than 3 Seconds Skin: No rashes, No breakdown Musculoskeletal: No Tenderness to Palpation of Joints or Extremities Neurological: Cranial nerves II-XII grossly intact Psych/Mental Status: Normal Affect, Appropriate Microbiology Past 72 Hours 07/13/20 19:45 Perianal Abcess Gram Stain - Final 07/13/20 19:45 Perianal Abcess Wound Culture - Preliminary Mixed Gram Positive Organisms Current Medications Acetaminophen (Tylenol) 325 - 650 mg PO Q4H PRN PRN PRN Reason: Pain Score 1-3/10 Al Hydroxide/Mg Hydroxide (Mylanta Ii) 15 - 30 ml PO Q4H PRN PRN PRN Reason: INDIGESTION Citric Acid/Sodium Citrate (Bicitra) 30 ml PO X1 PRN PRN Reason: Section Ephedrine Sulfate () 10 mg IV Q10M PRN PRN Reason: hypotension Ephedrine Sulfate () 10 mg IM Q30M PRN PRN Reason: hypotension Fentanyl Citrate (Sublimaze (100mcg Ampule)) 25 - 50 mcg IV Q2H PRN PRN PRN Reason: Pain Score 4-10/10 Fentanyl/Bupivacaine/Sodium Chlor () 0 ml EPIDURAL UD [facility]; Protocol Last Admin: 07/15/20 06:38 Dose: 100 ml Documented by: Lactated Ringer's () 500 mls @ 999 mls/hr IV .Q31M PRN PRN Reason: Epidural Last Infusion: 07/14/20 11:41 Dose: Infused Documented by: Lactated Ringer's () 500 mls @ 999 mls/hr IV .Q31M PRN PRN Reason: Corrective Measures Last Infusion: 07/14/20 13:53 Dose: Infused Documented by: Lactated Ringer's () 1,000 mls @ 50 mls/hr IV .Q20H [facility] Last Infusion: 07/15/20 07:08 Dose: 200 mls/hr Documented by: Oxytocin/Sodium Chloride () 30 units in 500 mls @ 2 mls/hr IV .Q250H [facility] Last Infusion: 07/14/20 18:10 Dose: 0 mls/hr Documented by: Naloxone HCl 4 mg/ Dextrose 504 mls @ 0 mls/hr IV .Q0M PRN; Protocol PRN Reason: To maintain Resp. rate >10 Clindamycin Phosphate 600 mg/ (Dextrose) 54 mls @ 100 mls/hr IV Q8 [facility] Last Infusion: 07/15/20 07:08 Dose: Infused Documented by: Naloxone HCl (Narcan) 0.02 mg IV Q1M PRN PRN Reason: RR< 10 AND PT UNRESPONSIVE Ondansetron HCl (Zofran) 4 mg IV Q4H PRN PRN PRN Reason: NAUSEA Prochlorperazine Edisylate (Compazine Iv) 10 mg IV Q6H PRN PRN PRN Reason: NAUSEA Sodium Chloride () 10 - 40 ml IV X1 PRN PRN Reason: SALINE FLUSH Medical Necessity - Tobacco Use Smoking Status: Former smoker Assessment/Plan All Active Problems (Last Updated 07/15/20 @ 00:[address] Gabbi Green MD) 39 weeks gestation of (Acute) Herpes simplex (Acute) Bartholin's gland cyst (Acute) A/P: Cervical and labial edema has decreased SVE complete and ready to push NST Category I with Category II minimal variability at times UC Q4-5m Epidural in place for effective pain management Expect Post delivery to determine cyst marsupialization vs outpatient surgery
[2020-07-15] MEDS: Oxytocin 30 units/NS 500 ml 30 UNITS/500 ML IV.SOLN 334 UNITS IV (12:04)
--- NOTE | 2020-07-15 12:37 | PCM.OPRPT ---
<Josee Kam - Last Filed: 07/15/20 12:37> Problem List (1) 39 weeks gestation of Status: Inactive (2) Herpes simplex Status: Inactive (3) Bartholin's gland cyst Status: Acute (4) Normal vaginal delivery Status: Acute Vaginal Delivery Maternal Presentation: Elective Induction Method of Induction: Cytotec Amniotic Membrane Rupture Type: Artificial Amniotic Fluid Description: Clear Final KALI: 07/21/20 Gestational age: 39 Weeks and 1 Days Date of Procedure: 07/15/20 Pre-Operative Diagnosis: IOL Post-Operative Diagnosis: Surgery/ Procedure Performed: Spontaneous Vaginal Delivery Type of Anesthesia: Epidural Description of Procedure: Patient was FD at +3 station when typewriter ribbon winder arrived to room. She pushed well to deliver head in OA to BRENT followed spontaneously by body. The male infant was placed on the maternal abdomen and further attended to by nursery personnel. The cord was doubly clamped and cut by FOB under CNM supervision at approximately 5 minutes of life. Cord blood obtained. No lacerations noted. Left labial cyst still intact and will plan to leave intact until follow up with Dr. Loya. IV Pitocin started per protocol. With gentle traction the placenta delivered in Arnel mechanism after approx 25 minutes. Appeared intact with a three vessel cord. Fundus firm, midline, u/2 after massage. Apgars 8/9. EBL 50. Sponge count correct x 2. Attending MD for CNM: Dr. Sara Prasad whom was called to inspect intact cyst Presentation: Vertex, BRENT Placental Delivery Description: Spontaneous Placenta Disposition: [facility] Cord Vessel Description: 3 Vessels Cord Entanglement: None Drain: Swanson to straight drain Estimated Blood Loss: 50 A gender: Male (1 minute): 8 (5 minute): 9 Episiotomy Description: None Laceration: None Medications given after delivery: IV Pitocin <Tatiana Prasad - Last Filed: 07/15/20 15:49> Vaginal Delivery Description of Procedure: Spontaneous vaginal delivery, intact perineum. Left labial edema/cyst inspected. In tact. Continue with plan for outpatient surgical management.
--- NOTE | 2020-07-15 12:43 | DCINST_ITS ---
Discharge Diet: No Restrictions Discharge Activity: Return to Normal Activity, May not drive while taking narcotic pain medications., May Shower May resume sexual activity in: 4-6 weeks Additional Activity Instructions:: Nothing in the vagina for 4-6 weeks. You may return to work/school in 6 weeks. Call your doctor if your incision/area has: Continuous Slow Oozing, Sudden Increased Bleeding, Increased Pain/ Swelling, Increased Redness, Foul Smelling Discharge Additional Instructions: If you experience any of the following, contact your healthcare provider. * Bleeding that soaks a pad every hour for 2 hours * Fever 100.4 or higher * Unrelieved incision or abdominal pain * Swelling, redness, discharge or bleeding from your incision or episiotomy site * Your incision begins to separate * Problems urinating (including inability to urinate or burning while urinating). * Visual changes * Severe headache * Flu-like symptoms * Pain or redness in one of both of your breasts * Pain, warmth, tenderness or swelling in your legs, especially the calf area * Frequent nausea and vomiting * Symptoms of depression or anxiety If you experience any of the following, call 911 or go to the nearest Emergency Room. * Chest pain * Problems breathing * Seizure activity * Partial or complete paralysis of a body part, slurred speech, weakness or drooping of the face, or a sudden inability to walk or hold your balance Allergies/Adverse Reactions: Allergies No Known Allergies Allergy (Verified 07/13/20 20:22) Medications to take at Discharge Albuterol IH (ProAir) [Proair Hfa] 1 puff INHALATION PRN PRN 06/18/20 Vits [Prenatabs FA ] 1 tab PO DAILY 06/18/20 Valacyclovir HCl [Valtrex] 1,000 mg PO DAILY 07/11/20 Clindamycin [Cleocin] 300 mg PO TID 7 Days #21 cap 07/16/20 The following prescriptions were given: Clindamycin [Cleocin] 300 mg PO TID 7 Days #21 cap Transmission Status: Pending to [id number] Please Follow Up With: Josee Kam CNM When: Call to make an appointment with your CNM in 2 weeks for a telehealth appointment and a 6 week routine appointment. To be seen 2-4 weeks [address] delivery with Dr. Loya for pre-op appointment. Primary Care Physician: Care Physician,No Primary [Primary Care Provider] - Test Results: Test results from this visit will be discussed in further detail at your follow- up appointment, if applicable.
[2020-07-15] MEDS: Ibuprofen 600 MG Tablet PO (14:02)
[2020-07-15] MEDS: 0.9% Saline Lock 10 ML Syringe IV (14:27)
[2020-07-15] MEDS: Acetaminophen 500 MG Tablet 1000 MG PO (17:10)
[2020-07-16] VITALS (8 sets, daily range): BP systolic 121–144; BP diastolic 65–80; PULSE 75–98; RESP 14–16; TEMP 36.1–36.8
[2020-07-16] MEDS: Acetaminophen 500 MG Tablet 1000 MG PO ×2 (00:48→10:18)
[2020-07-16] MEDS: Ibuprofen 600 MG Tablet PO (08:41)
--- NOTE | 2020-07-16 11:36 | PCM.DC.SUM ---
Discharge Date and Diagnosis - Problem List Patient Problems: Active and Suspected Problems (Last Updated 07/15/20 @ 00:[address] Gabbi Green MD) Normal vaginal delivery (Acute) Bartholin's gland cyst (Acute) Date of Admission: 07/13/20 Date of Discharge: 07/16/20 - Primary Discharge Diagnosis Acute Problems: Active Problems (Last Updated 07/15/20 @ 00:[address] Gabbi Green MD) Normal vaginal delivery (Acute) Bartholin's gland cyst (Acute) Hospital Course and Treatment Summary of Care Provided: The patient is a 25 year old F [] Patient Problems: Active and Suspected Problems (Last Updated 07/15/20 @ 00:[address] Gabbi Green MD) Normal vaginal delivery (Acute) Bartholin's gland cyst (Acute) Subjective: Feeling great today. Denies pain or heavy bleeding. is going well with son having a good latch. No concerns and would like to discharge home today. Objective: VSS. Fundus is firm, midline, u/1. Lochia rubra moderate. - Physical Exam Vitals/I&O's: Vital Signs Temp Pulse Resp BP Pulse Ox 97.4 F L 92 16 137/80 H 99 07/16/20 08:35 07/16/20 08:35 07/16/20 08:35 07/16/20 08:35 07/15/20 13:16 Oxygen Delivery Method Room Air Weight: 74.843 kg Body Mass Index (BMI) 27.4 Intake and Output for Last 24 Hours 07/14/20 07/15/20 07/16/20 23:59 23:59 23:59 Intake Total 5334.20 / 5334.20 4270.83 / 4270.83 Output Total 3700 / 3700 4600 / 4600 Balance 1634.20 / 1634.20 -329.17 / -329.17 General: Alert, Oriented x3, Cooperative HEENT: Atraumatic, PERRLA, EOMI, Normocephalic Neck: Supple, No JVD, Negative Carotid Bruits Lungs: Clear to auscultation, Normal air movement Cardiovascular: Regular rate, No murmurs Abdomen: Bowel Sounds Present, Soft, Non Tender Extremities: No edema, Capillary Refill Less than 3 Seconds Skin: No rashes, No breakdown Musculoskeletal: No Tenderness to Palpation of Joints or Extremities Neurological: Cranial nerves II-XII grossly intact Psych/Mental Status: Normal Affect, Appropriate Microbiology Past 72 Hours 07/13/20 19:45 Perianal Abcess Gram Stain - Final 07/13/20 19:45 Perianal Abcess Wound Culture - Preliminary GPC Poss Enterococcus sp Alpha hemolytic organism Coag Negative Staph Gram positive pushpa Current Medications Acetaminophen (Tylenol) 1,000 mg PO Q8H PRN PRN PRN Reason: Pain Score 1-3/10 Last Admin: 07/16/20 10:18 Dose: 1,000 mg Documented by: Bisacodyl (Dulcolax) 10 mg RECTAL UD PRN PRN Reason: If no BM Dibucaine (Dibucaine) 1 applic TOPICAL TID PRN PRN; Protocol PRN Reason: Discomfort Hydrocortisone (Hytone) 1 applic TOPICAL TID PRN PRN; Protocol PRN Reason: Discomfort Ibuprofen (Motrin) 600 mg PO Q6H PRN PRN PRN Reason: Pain Score 1-3/10 Last Admin: 07/16/20 08:41 Dose: 600 mg Documented by: Methylergonovine Maleate (Methergine) 0.2 mg IM X1 PRN PRN Reason: Excess bleeding/uterine atony Ondansetron HCl (Zofran) 4 mg IV Q4H PRN PRN PRN Reason: Nausea Oxycodone HCl (Oxyir) 5 - 10 mg PO Q4H PRN PRN PRN Reason: Pain Score 4-10/10 Senna/Docusate Sodium (Senokot-S, Chelsi-Colace) 1 - 2 tablet PO DAILY PRN PRN PRN Reason: Constipation Simethicone (Mylicon) 80 mg PO PCHS PRN PRN Reason: Indigestion/Stomach pain Sodium Chloride () 5 - 15 ml IV UD PRN PRN Reason: SALINE FLUSH Last Admin: 07/15/20 14:27 Dose: 10 ml Documented by: Discharge Diet: No Restrictions Discharge Activity: Return to Normal Activity, May not drive while taking narcotic pain medications., May Shower May resume sexual activity in: 4-6 weeks Additional Activity Instructions:: Nothing in the vagina for 4-6 weeks. You may return to work/school in 6 weeks. Call your doctor if your incision/area has: Continuous Slow Oozing, Sudden Increased Bleeding, Increased Pain/ Swelling, Increased Redness, Foul Smelling Discharge Home Medications: Medications to take at Discharge Albuterol IH (ProAir) [Proair Hfa] 1 puff INHALATION PRN PRN 06/18/20 Vits [Prenatabs FA ] 1 tab PO DAILY 06/18/20 Valacyclovir HCl [Valtrex] 1,000 mg PO DAILY 07/11/20 Clindamycin [Cleocin] 300 mg PO TID 7 Days #21 cap 07/16/20 Following Prescriptions Were Given to Patient: Clindamycin [Cleocin] 300 mg PO TID 7 Days #21 cap Transmission Status: Received by [id number] Primary Care Physician: Care Physician,No Primary [Primary Care Provider] - Please Follow Up With: Josee Kam CNM Medical Necessity - Tobacco Use Smoking Status: Former smoker Meaningful Use Info Meaningful Use Diagnoses (Choose all that apply): None applicable
== END 2020-07-16 15:20 | disposition home or self-care (01) | DRG 807 ==
PROVIDERS: Admitting Provider Obstetrics & Gynecology; Referring Provider Obstetrics & Gynecology; Visit Provider Obstetrics & Gynecology
DX: O75.89 Other specified complications of labor and delivery (principal); Z37.0 Single live birth; N75.0 Cyst of Bartholin's gland; Z3A.38 38 weeks gestation of pregnancy
CPT/HCPCS: 59025; 59050; 80307; 85025; 86850; 86900; 86901; 87070; 87077; 87186; 87205; 99218; J7120; A4216; G0378

== ENCOUNTER → 2023-03-28 | Outpatient (CLI) | payer MEDICAID, SELFPAY ==
[2023-04-01 22:06] LABS: Chlamydia By Nucleic Acid AMP Negative (Negative); Gonococcus By Nucleic Acid AMP Negative (Negative)
[2023-04-05 20:43] LABS: HPV Reflexed? NOT INDICATED
== END | disposition home or self-care (01) ==
LOC: LABSPEC 16:01
PROVIDERS: Referring Provider Obstetrics & Gynecology; Visit Provider Obstetrics & Gynecology
DX: O09.90 Supervision of high risk pregnancy, unspecified, unspecified trimester (principal)
CPT/HCPCS: 87086; 87088; 87491; 87591; 88175; G0145

== ENCOUNTER → 2023-04-22 | Outpatient (CLI) | payer MEDICAID, SELFPAY ==
[2023-04-22 12:35] LABS: Absolute Lymphocyte Count 1.08 X10^3/uL (0.83-4.51); Absolute Neutrophil Count 5.4 X10^3/uL (2.0-7.7); Basophil# 0.02 X10^3/uL; Basophil% 0.3 % (0-1); Eosinophil# 0.12 X10^3/uL; Eosinophils% 1.7 % (0-5); Hematocrit 38.3 % (37-47); Hemoglobin 12.7 g/dL (12.0-15.0); Lymphocyte # 1.08 X10^3/ul (0.83-4.51); Lymphocyte % 15.2 % (19-41); Mean Corp Hgb Conc 33.2 g/dL (32-36); Mean Corpuscular Volume 93.4 fL (81-99); Mean Platelet Vol. 10.3 fl (6.2-12.0); Monocyte# 0.43 X10^3/uL; Monocyte% 6.1 % (0-10); NRBC Flagged by Analyzer 0 % (0-5); Neutrophil # 5.41 X10^3/uL (2.7-7.7); Neutrophil % 76.3 % (47-70); Platelet Count 261 K/mm3 (150-450); RBC Distribution Width CV 12.2 % (11.6-14.6); RBC Distribution Width SD 42.3 fl (35.1-43.9); White Blood Count 7.1 K/mm3 (4.4-11.0)
[2023-04-22 12:54] LABS: NATERA MAILED SPECIMEN
[2023-04-22 13:52] LABS: HIV - WCH Non-Reactive (Nonreactive); Hepatitis B Surface Antigen Non-Reactive (Nonreactive); Hepatitis C Antibody Non-Reactive (Nonreactive); Rubella IgG Reactive (Nonreactive); Syphilis Antibodies Non-reactive
== END | disposition home or self-care (01) ==
LOC: LAB 11:52
PROVIDERS: Referring Provider Obstetrics & Gynecology; Visit Provider Obstetrics & Gynecology
DX: O09.90 Supervision of high risk pregnancy, unspecified, unspecified trimester (principal); Z3A.00 Weeks of gestation of pregnancy not specified
CPT/HCPCS: 36415; 85025; 86703; 86762; 86780; 86803; 86850; 86900; 86901; 87340

== ENCOUNTER 2023-06-07 20:21 | Emergency (ER) | payer MEDICAID, SELFPAY ==
[2023-06-07 20:22] VITALS: BP 128/85; PULSE 118; RESP 20; TEMP 36.9; O2SAT 100; BMI 21.0
--- NOTE | 2023-06-07 21:58 | EDS_ITS ---
HPI History of Present Illness Chief Complaint: Abscess [facility] Medical History 39 weeks gestation of Asthma Bartholin's gland cyst Herpes simplex HSV (herpes simplex virus) anogenital infection Labial cyst Normal vaginal delivery Home Medications albuterol sulfate 90 mcg/actuation aerosol inhaler 1 puff inhalation PRN PRN Asthma 06/18/20 [History Last Taken Unknown] vits,calcium no.78-iron fumarate-folic acid 29 mg-1 mg tablet 1 tab PO DAILY Check with primary doctor 06/18/20 [History Last Taken 07/10/20] Valacyclovir Hcl [Valtrex] 1,000 mg PO DAILY Check with primary doctor 07/11/20 [History Last Taken 07/10/20] cephalexin 500 mg capsule 500 mg PO TID #21 caps 06/07/23 [Rx Last Taken Unknown] Allergy/AdvReac Type Severity Reaction Status Date / Time No Known Allergies Allergy Verified 06/07/23 20:22 Surgical History H/O wisdom tooth extraction [place] teeth removed Social History adopted: No household members: children number of children: 1 current occupational status: employed current occupation: [employer] current occupational exposures/hazards: No pets and animals: Yes pets and animals: fish history of recent travel: No sexually active: Yes Smoking Status: Former smoker alcohol intake: never substance use type: does not use caffeine: Yes Type: other Number of servings: 2 seatbelt use: always do you feel safe at home: Yes EXAM Physical Exam Const Vital Signs: 06/07/23 20:22 Temperature 98.5 F Temperature Source Temporal Pulse Rate 118 H Respiratory Rate 20 H Blood Pressure 128/85 H Blood Pressure Mean 99 Pulse Ox 100 MDM MDM MDM Narrative Medical decision making narrative: HISTORY OF PRESENT ILLNESS: 29-year-old female here with concern for Bartholin's gland cyst. Notes pain and swelling in her vagina. Denies any abdominal pain. Denies any vomiting. Denies any fever. Denies any trouble with urination or stools. Denies any history of diabetes or other immunocompromising states. States has a history of this in the past that required drainage and insertion of a device. Patient patient is a G2, P1 REVIEW OF SYSTEMS: Pertinent positives: left vaginal swelling Pertinent negatives: Fever, vomiting, decreased movement, passage of any tissue, leakage of any fluid PHYSICAL EXAM: Nursing triage notes reviewed, Vital signs reviewed Constitutional: please see mdm Neck: No stridor, no JVD, full neck ROM Lungs: Clear to auscultation, No wheezing or rales. No increased work of breathing, no conversational dyspnea, no accessory muscle use, no nasal flaring. No respiratory distress noted Heart: Regular rate and rhythm, No murmurs, No rubs and No gallops, 2+ distal pulses (radial, femoral, posterior tibial) in all extremities Abdomen: Soft, there is no tenderness, rigidity, rebound or guarding, no obvious peritoneal signs, no palpable pulsatile abdominal masses, no auscultated abdominal bruit : No CVAT, vaginal exam performed with painter plate in the room Ros ALLRED. Vaginal exam showed a left Bartholin cyst with surrounding erythema. There is no perineal involvement, no crepitus, no pain etc. reports exam. Extremities: No edema Skin: Erythema noted to left vaginal area MEDICAL DECISION MAKING: Chief Complaint: Bartholin cyst External records reviewed: Seen at the OB office on 05/22/2023 for Bartholin cyst Factors affecting care: History of Bartholin cyst, ALL IMAGES (IF OBTAINED) HAVE BEEN PERSONALLY REVIEWED AND INTERPRETED BY MYSELF. MDM Narrative: 28-year-old female patient was initially tachycardic otherwise hemodynamically stable afebrile and nontoxic-appearing Patient's physical exam is consistent with Bartholin cyst. There is overlying erythema concerning for skin infection. There is no perineal involvement evidence of Vaibhav's. Patient abdominal exam had a gravid uterus and was benign. Bartholin cyst was incised and drained. Got approximately 5 cc of purulent fluid and drainage. Russell catheter placed. We will give prophylactic antibiotics given concern for overlying cellulitis. Will obtain a urinalysis and urine culture to rule out asymptomatic bacteriuria. Will give close [facility] follow-up. Patient states he has an appointment on Saturday. Encouraged to continue this appointment. Gave strict return precautions including nausea vomiting, fever, passage of tissue, leakage of fluid or severe abdominal pain. The patient and/or family, caregivers express understanding. The patient and/or family, caregivers agrees with the plan. Shared decision making: I will have a discussion with the patient and or visitors regarding risk/benefits of further testing or admission. They will be made aware of of the risk/benefits inherent in this decision they will be given the opportunity to voice understanding. Total critical care time today provided was at least 0 minutes. This excludes separately billable procedures. Critical care time (if documented) is secondary to the patient having high probability of clinically significant/life threatening deterioration in the patient's condition which required my urgent intervention. Procedures Other Procedures Procedure(s): Procedure: Incision and Drainage left Bartholin gland cyst The procedure was performed by myself. Location: Left vaginal mucosa Risks and benefits: Risks, benefits, and alternatives were discussed. Questions were sought and answered, and verbal consent provided for the procedure. Anesthesia: 1% lidocaine Procedure Description: Wound was opened with 11 blade, W0rd catheter was inserted The patient tolerated the procedure well without complications. Discharge Plan Triage Chief Complaint: Abscess ED Provider: Shan Nye Dx/Rx/DC Orders Clinical Impression: Bartholin gland cyst Instructions: Bartholin Cyst and Abscess Prescriptions: New cephalexin 500 mg capsule 500 mg PO TID Qty: 21 0RF No Action albuterol sulfate 1 PUFF inhaler 1 puff inhalation PRN PRN (Reason: Asthma) vit,[id number] 1 TABLET tablet 1 tab PO DAILY Valacyclovir Hcl [Valtrex] 1,000 MG tablet 1,000 mg PO DAILY Stand Alone Forms: ED Work / School Excuse Primary Care Provider: Care Physician,No Primary Referrals: Jigna Rene MD [Med Staff - Active Staff] - Care Physician,No Primary [Primary Care Provider] - Activity Restrictions/Additional Instructions: Thank you for trusting us with your care today! Please take Tylenol (2 pills, 650 mg), ibuprofen (2 pills, 400 mg) every 6 hours as needed for pain and fever control. Please take antibiotics as prescribed. Please return to the emergency department if your symptoms change or worsen. Specifically you develop worsening pain in your perineum. Fever, vomiting, passing tissue, leakage of fluid Please follow with your [facility] for further outpatient evaluation and management. Disposition Disposition: Home, Self Care
[2023-06-07 23:09] VITALS: PULSE 68; RESP 16; O2SAT 98
[2023-06-07] MEDS: Cephalexin 250 MG Capsule 500 MG PO (23:21)
[2023-06-07] MEDS: Lidocaine 1% (20 ml mdv) 20 ML Vial 5 ML INFILT (23:21)
== END 2023-06-07 23:26 | disposition home or self-care (01) ==
PROVIDERS: Emergency Provider Emergency Medicine; Visit Provider Emergency Medicine
DX: O99.891 Other specified diseases and conditions complicating pregnancy (principal); N75.0 Cyst of Bartholin's gland; Z87.891 Personal history of nicotine dependence; J45.909 Unspecified asthma, uncomplicated; Z3A.00 Weeks of gestation of pregnancy not specified; O99.519 Diseases of the respiratory system complicating pregnancy, unspecified trimester
CPT/HCPCS: 10060; 99283

== ENCOUNTER → 2023-06-10 | Outpatient (CLI) | payer MEDICAID, SELFPAY ==
[2023-06-10 12:00] LABS: Absolute Lymphocyte Count 0.97 X10^3/uL (0.83-4.51); Absolute Neutrophil Count 3.8 X10^3/uL (2.0-7.7); Basophil# 0.01 X10^3/uL; Basophil% 0.2 % (0-1); Eosinophil# 0.12 X10^3/uL; Eosinophils% 2.2 % (0-5); Hematocrit 32.8 % (37-47); Hemoglobin 11.2 g/dL (12.0-15.0); Lymphocyte # 0.97 X10^3/ul (0.83-4.51); Lymphocyte % 17.9 % (19-41); Mean Corp Hgb Conc 34.1 g/dL (32-36); Mean Corpuscular Hgb 30.9 pg (27.0-32.0); Mean Corpuscular Volume 90.6 fL (81-99); Mean Platelet Vol. 9.9 fl (6.2-12.0); Monocyte# 0.49 X10^3/uL; Monocyte% 9.1 % (0-10); NRBC Flagged by Analyzer 0 % (0-5); Neutrophil # 3.79 X10^3/uL (2.7-7.7); Platelet Count 208 K/mm3 (150-450); RBC Distribution Width CV 12.7 % (11.6-14.6); RBC Distribution Width SD 41.9 fl (35.1-43.9); Red Blood Count 3.62 M/mm3 (4.2-5.4); White Blood Count 5.4 K/mm3 (4.4-11.0)
== END | disposition home or self-care (01) ==
PROVIDERS: PCP Family Medicine; Referring Provider Nurse Practitioner Women's Health; Visit Provider Nurse Practitioner Women's Health
DX: N75.1 Abscess of Bartholin's gland (principal)
CPT/HCPCS: 36415; 85025; 87070; 87077; 87205

== ENCOUNTER → 2023-07-09 | Outpatient (CLI) | payer MEDICAID, SELFPAY ==
--- NOTE | 2023-07-09 09:03 | US_ITS ---
INDICATION: placenta previa EXAMINATION: Ultrasound US OB Transvaginal TECHNIQUE: Transabdominal and transvaginal (for optimal evaluation of the adnexa) pelvic ultrasound was performed. Grayscale, spectral waveform, and color flow Doppler evaluation of the adnexa. COMPARISON: No relevant prior comparison study available FINDINGS: UTERUS: The cervix is closed and measures 3.6 cm in length. HEART MOTION: 144 bpm. PHYSICIAN: Cephalic PLACENTA: The placenta is posterior in location and is not low-lying. AMNIOTIC FLUID: Qualitatively normal. IMPRESSION: Single live intrauterine . Posterior placenta with no associated placenta previa. Electronically Signed: Monica Galeana MD at 8:32 EDT , INDICATION: placenta previa EXAMINATION: Ultrasound US OB Transvaginal TECHNIQUE: Transabdominal and transvaginal (for optimal evaluation of the adnexa) pelvic ultrasound was performed. Grayscale, spectral waveform, and color flow Doppler evaluation of the adnexa. COMPARISON: No relevant prior comparison study available FINDINGS: UTERUS: The cervix is closed and measures 3.6 cm in length. HEART MOTION: 144 bpm. PHYSICIAN: Cephalic PLACENTA: The placenta is posterior and not low-lying. AMNIOTIC FLUID: Qualitatively normal. US/OB Limited (No Biometrics) IMPRESSION: Single live intrauterine . Posterior placenta with no associated placenta previa. Electronically Signed: Monica Galeana MD at 8:31 EDT ,
== END | disposition home or self-care (01) ==
LOC: OPUS 09:02
PROVIDERS: PCP Family Medicine; Referring Provider Registered Nurse; Visit Provider Registered Nurse
DX: O44.40 Low lying placenta NOS or without hemorrhage, unspecified trimester (principal); Z3A.00 Weeks of gestation of pregnancy not specified
CPT/HCPCS: 76815; 76830

== ENCOUNTER → 2023-07-23 | Outpatient (CLI) | payer MEDICAID, SELFPAY | END | disposition home or self-care (01) | LOC: LABSPEC 11:14 | PROVIDERS: PCP Family Medicine; Referring Provider Obstetrics & Gynecology; Visit Provider Obstetrics & Gynecology | DX: N75.0 Cyst of Bartholin's gland (principal) | CPT/HCPCS: 87070; 87077; 87186; 87205 ==

== ENCOUNTER → 2023-08-06 | Outpatient (CLI) | payer MEDICAID, SELFPAY ==
[2023-08-06 10:39] LABS: Absolute Lymphocyte Count 1.33 X10^3/uL (0.83-4.51); Absolute Neutrophil Count 7.1 X10^3/uL (2.0-7.7); Basophil# 0.03 X10^3/uL; Basophil% 0.3 % (0-1); Eosinophil# 0.13 X10^3/uL; Eosinophils% 1.4 % (0-5); Hematocrit 34.8 % (37-47); Lymphocyte # 1.33 X10^3/ul (0.83-4.51); Lymphocyte % 14.4 % (19-41); Mean Corp Hgb Conc 34.5 g/dL (32-36); Mean Corpuscular Hgb 31.7 pg (27.0-32.0); Mean Corpuscular Volume 91.8 fL (81-99); Mean Platelet Vol. 9.4 fl (6.2-12.0); Monocyte# 0.54 X10^3/uL; Monocyte% 5.9 % (0-10); NRBC Flagged by Analyzer 0 % (0-5); Neutrophil # 7.11 X10^3/uL (2.7-7.7); Neutrophil % 77.1 % (47-70); Platelet Count 265 K/mm3 (150-450); RBC Distribution Width CV 13.1 % (11.6-14.6); RBC Distribution Width SD 43.8 fl (35.1-43.9); Red Blood Count 3.79 M/mm3 (4.2-5.4); White Blood Count 9.2 K/mm3 (4.4-11.0)
[2023-08-06 11:31] LABS: HIV - WCH Non-Reactive (Nonreactive); Syphilis Antibodies Non-reactive
[2023-08-06 11:38] LABS: Glucose Challenge Gest 1H 50g 117 mg/dL (70-140)
== END | disposition home or self-care (01) ==
PROVIDERS: PCP Family Medicine; Referring Provider Obstetrics & Gynecology; Visit Provider Obstetrics & Gynecology
DX: O09.90 Supervision of high risk pregnancy, unspecified, unspecified trimester (principal); Z3A.00 Weeks of gestation of pregnancy not specified
CPT/HCPCS: 36415; 82950; 85025; 86703; 86780

== ENCOUNTER → 2023-10-08 | Outpatient (CLI) | payer MEDICAID, SELFPAY | END | disposition home or self-care (01) | LOC: LABSPEC 15:24 | PROVIDERS: PCP Family Medicine; Visit Provider Obstetrics & Gynecology | DX: O99.891 Other specified diseases and conditions complicating pregnancy (principal); N75.1 Abscess of Bartholin's gland; Z3A.00 Weeks of gestation of pregnancy not specified | CPT/HCPCS: 87070; 87077; 87186; 87205 ==

== ENCOUNTER 2023-10-15 19:27 | Outpatient (CLI) | payer MEDICAID, SELFPAY ==
[2023-10-15 19:54] VITALS: BP 118/72; PULSE 94; PULSE 97; TEMP 36.9; O2SAT 99
[2023-10-15 20:02] VITALS: BMI 25.0
--- NOTE | 2023-10-15 20:59 | OB.TRI.PN_ITS ---
Progress Notes Date of Service: 10/15/23 Progress Note: Patient presents for triage evaluation secondary to contractions FHT: 140 Moderate variability reactive no decelerations category I tracing [place]: Irregular Contractions Assessment and plan: Reactive NST, no cervical change, reassuring maternal and status patient discharged to home to follow-up at next appt. See problem list details for additional plan information. Charges/Coding Multi Select Codes Urinary/Genital Urinary/Genital CPT Codes: No Charge Assessment & Plan (1) Uterine contractions: COMMENT: no cervical change, reactive NST, d/c home (2) Low lying placenta, antepartum: COMMENT: repeat US at 28 wk to recheck. RESOLVED (3) Bartholin's gland abscess: COMMENT: ED 06/07 and cath placed and came out. 06/10:I&D w/replace cath and change to augmentin. 06/24 cath removed; stable 10/08/23- re-infected gland. starting flagyl and culture pending. (4) Bartholin gland cyst: COMMENT: draining from past opening, discussed word catheter placement or marsupilization if recurrent abscess (5) History of depression, currently : COMMENT: celexa + buspar this ; stable (6) Supervision of high risk , antepartum: COMMENT: [id number] KALI 11/05/23 VILMA [place], normal glucola (7) : QUALIFIERS: Weeks of gestation: 36 weeks Qualified Code(s): Z3A.36 - 36 weeks gestation of COMMENT: NL anatomy LR NIPT (8) Herpes simplex: COMMENT: start Valtrex at 36 weeks
== END 2023-10-15 21:20 | disposition home or self-care (01) ==
LOC: WPOUT 19:35 → WP 19:37
PROVIDERS: PCP Family Medicine; Visit Provider Advanced Practice Midwife
DX: O47.03 False labor before 37 completed weeks of gestation, third trimester (principal); Z3A.36 36 weeks gestation of pregnancy; O98.313 Other infections with a predominantly sexual mode of transmission complicating pregnancy, third trimester; A60.04 Herpesviral vulvovaginitis
CPT/HCPCS: 59025; 59050; 99221; G0378

== ENCOUNTER → 2023-10-16 | Outpatient (CLI) | payer MEDICAID, SELFPAY | END | disposition home or self-care (01) | LOC: LABSPEC 13:36 | PROVIDERS: PCP Family Medicine; Referring Provider Nurse Practitioner Women's Health; Visit Provider Nurse Practitioner Women's Health | DX: Z34.90 Encounter for supervision of normal pregnancy, unspecified, unspecified trimester (principal); Z3A.00 Weeks of gestation of pregnancy not specified | CPT/HCPCS: 87081 ==

== ENCOUNTER 2023-10-24 19:00 | Outpatient (CLI) | payer MEDICAID, SELFPAY ==
[2023-10-24 19:33] VITALS: BP 122/69; PULSE 109
[2023-10-24 19:34] VITALS: PULSE 111; O2SAT 98
[2023-10-24 19:39] VITALS: PULSE 123; O2SAT 97
[2023-10-24 19:41] VITALS: BMI 25.4
[2023-10-24 19:44] VITALS: PULSE 127; O2SAT 97
[2023-10-24 19:46] VITALS: BP 122/69; PULSE 110; TEMP 37.2; O2SAT 98
[2023-10-24 21:23] VITALS: PULSE 99; O2SAT 98
--- NOTE | 2023-10-29 17:47 | OB.TRI.PN_ITS ---
Progress Notes Date of Service: 10/24/23 Progress Note: Patient presents for triage evaluation secondary to contractions FHT: 130 Moderate variability reactive no decelerations category I tracing [place]: irregular Contractions Assessment and plan: false labor no cervical change Reactive NST, reassuring maternal and status patient discharged to home to follow-up as scheduled. See problem list details for additional plan information. Charges/Coding Procedures Urinary/Genital 52xxx-59xxx: 58551-80 non-stress test Interp
== END 2023-10-24 23:44 | disposition home or self-care (01) ==
LOC: WPOUT 19:05 → WP 19:10
PROVIDERS: PCP Family Medicine; Referring Provider Obstetrics & Gynecology; Visit Provider Obstetrics & Gynecology
DX: O47.9 False labor, unspecified (principal); Z3A.00 Weeks of gestation of pregnancy not specified
CPT/HCPCS: 59025; 59050

== ENCOUNTER 2023-10-30 07:05 | Inpatient (IN) | payer MEDICAID, SELFPAY ==
[2023-10-30] VITALS (63 sets, daily range): BP systolic 94–133; BP diastolic 50–86; PULSE 78–157; RESP 16; TEMP 36.1–37.2; O2SAT 94–100; BMI 25.5
[2023-10-30] MEDS: Lactated Ringers 1,000 ML 50 ML IV (07:40)
[2023-10-30 07:54] LABS: Absolute Neutrophil Count 7.8 X10^3/uL (2.0-7.7); Basophil# 0.07 X10^3/uL; Basophil% 0.6 % (0-1); Eosinophil# 0.17 X10^3/uL; Eosinophils% 1.5 % (0-5); Hematocrit 33.8 % (37-47); Hemoglobin 11.4 g/dL (12.0-15.0); Lymphocyte % 18.8 % (19-41); Mean Corp Hgb Conc 33.7 g/dL (32-36); Mean Corpuscular Hgb 30.6 pg (27.0-32.0); Mean Corpuscular Volume 90.9 fL (81-99); Mean Platelet Vol. 10.2 fl (6.2-12.0); Monocyte# 0.77 X10^3/uL; Monocyte% 6.9 % (0-10); NRBC Flagged by Analyzer 0 % (0-5); Neutrophil # 7.82 X10^3/uL (2.7-7.7); Neutrophil % 70.1 % (47-70); Platelet Count 283 K/mm3 (150-450); RBC Distribution Width CV 13.6 % (11.6-14.6); RBC Distribution Width SD 44.4 fl (35.1-43.9); Red Blood Count 3.72 M/mm3 (4.2-5.4); White Blood Count 11.2 K/mm3 (4.4-11.0)
--- NOTE | 2023-10-30 08:02 | HP.PCM.OB_ITS ---
HPI - General General Date of Admission: 10/30/23 HPI Narrative PRUDENCIO VALERA, is a 28 y/o @ 39 weeks 1 day who presents to L&D for IOL due to persistent bartholin gland abscesses in and maternal exhaustion. Myers score of 7. She states that she is already tyrell o ften. her last check Dr. Rene called me 4-5 and thick. She denies loss of fluid, vaginal bleeding, or dec fm. Still draining on and off from bartholin gland abscess. She is status post antibiotics. Maternal Data Information KALI Calculator Estimated Delivery Date Method Current WG Current Estimate 11/05/23 Ultrasound #1 39w 1d Other Estimates 10/28/23 LMP (Certain) 40w 2d PFSH PFS Medical History 39 weeks gestation of Asthma Bartholin's gland cyst Herpes simplex HSV (herpes simplex virus) anogenital infection Labial cyst Normal vaginal delivery Home Medications albuterol sulfate 90 mcg/actuation aerosol inhaler 1 puff inhalation PRN PRN Asthma 06/18/20 [History Last Taken Unknown] vits,calcium no.78-iron fumarate-folic acid 29 mg-1 mg tablet 1 tab PO DAILY Check with primary doctor 06/18/20 [History Last Taken 10/23/23] Valacyclovir Hcl [Valtrex] 1,000 mg PO DAILY Check with primary doctor 07/11/20 [History Last Taken 07/10/20] citalopram 10 mg tablet (Celexa) 10 mg PO DAILY #30 tabs 07/23/23 [Rx Last Taken Unknown] lidocaine 5 % topical ointment 1 applic topical TID PRN pain #30 grams 09/16/23 [Rx Last Taken Unknown] valacyclovir 1 gram tablet (Valtrex) 1,000 mg PO DAILY #30 tabs 10/08/23 [Rx Last Taken 10/24/23 16:00] buspirone 10 mg tablet 10 mg PO TID PRN anxiety #60 tabs 10/09/23 [Rx Last Taken 10/24/23 15:00] sulfamethoxazole 800 mg-trimethoprim 160 mg tablet (Bactrim DS) 1 tab PO BID #14 tabs 10/14/23 [Rx Last Taken Unknown] Allergy/AdvReac Type Severity Reaction Status Date / Time No Known Allergies Allergy Verified 10/30/23 08:03 Surgical History H/O wisdom tooth extraction Bridgman teeth removed Social History adopted: No household members: children number of children: 1 current occupational status: employed current occupation: [employer] current occupational exposures/hazards: No pets and animals: Yes pets and animals: fish history of recent travel: No sexually active: Yes Smoking Status: Former smoker alcohol intake: never substance use type: does not use caffeine: Yes Type: other Number of servings: 2 seatbelt use: always do you feel safe at home: Yes History 2 Elective abortions Hx Para 1 Spontaneous abortions Hx # Term Pregnancies 1 Ectopic pregnancies Hx # Pregnancies Multiple births # of living children 1 Past Pregnancies Del. Date Name GA/Weeks Outcome Route Bth Weight Gen Labor Lgth Anesthesia Del [facility] Provider FOB 07/15/20 Bashir 38 live - full term 6.9 Male epidur al [facility] Visit Details Expected Delivery Route/Plan Labor Preferences- CB/BF classes: no labor support person: Daryl labor intervention preferences: [] pain management options preferred: epidural cut cord/dad catch: cord : yes PP control planned: discussed discussed possible routes of delivery and associated risks: [] special requests: [] Plans Covid status: 2 vaccines Flu vaccine: declines Tdap vaccine: given Rhogam: na LARC form signed: yes movement and labor precautions reviewed. Problem list reviewed and updated with the most current plan of care details and appropriate orders placed. Relevant counseling for the gestational age provided. Continue routine care and follow up unless otherwise noted in visit notes/problem list details OB Flowsheet Initial Weight: Not Recorded Date -?-?-?-?-?-?-?-?-?-?-?-?- EGA Weight BP Urine Prot -?-?-?-?-?-?-?-?-?-?-?-?- Glucose FHR FuHt Pres Dilation -?-?-?-?-?-?-?-?-?-?-?-?- Effaced St Visit Note 03/28/23 -?-?-?-?-?-?-?-?-?-?-?-?- 8w 2d 121 lb 124/78 -?-?-?-?-?-?-?-?-?-?-?-?- 160 -?-?-?-?--?-?-?-?-?-?-?-?- SM- CRL 1.6cm NO T cons with LMP 04/22/23 -?-?-?-?-?-?-?-?-?-?-?-?- 11w 6d 124 lb 8 oz 122/81 Nega tive -?-?-?-?-?-?-?-?-?-?-?-?- Negative 160 -?-?-?-?-?-?-?-?-?-?-?-?- LC- no vb/heber ramos. getting NOB labs today. adding NIPT. discussed and accepts AFP, will order with next visit. 05/22/23 -?-?-?-?-?-?-?-?-?-?-?-?- 16w 1d 124 lb 4 oz 112/82 Nega tive -?-?-?-?-?-?-?-?-?-?-?-?- Negative 145 -?-?-?-?-?-?-?-?-?-?-?-?- MH-No Vb. Doing well. No concerns. 06/17/23 -?-?-?-?-?-?-?-?-?-?-?-?- 19w 6d 127 lb 108/70 Negative -?-?-?-?-?-?-?-?-?-?-?-?- Negative 146 -?-?-?-?-?-?-?-?-?-?-?-?- MH-No VB. Still has billings cath in place, some drainage noted on exam. Reviewed anatomy US:rpt 2 weeks to complete and also US 28wk to check placental location. States feeling much improved. 06/24/23 -?-?-?-?-?-?-?-?-?-?-?-?- 20w 6d 126 lb 6 oz 110/60 110/60 -?-?-?-?-?-?-?-?-?-?-?-?- 157 -?-?-?-?-?-?--?-?-?-?-?-?- MH-NO VB. Russel weinberg. Minimal drainage at billings cath site. Deflated cath and removed today. Pt tolerated well 07/23/23 -?-?-?-?-?-?-?-?-?-?-?-?- 25w 0d 132 lb 2 oz 118/72 Nega tive -?-?-?-?-?-?-?-?-?-?-?-?- Negative 145 25 -?-?-?-?-?-?-?-?-?-?-?-?- JV- pt has a bar tholin gland cyst that is enlarged and she is requesting treatment (see procedure note) she complains of anxiety and depression exacerbation. zoloft did not help in the past. will try celexa + buspar. 08/06/23 -?-?-?-?-?-?--?-?-?-?-?-?- 27w 0d 131 lb 8 oz 124/72 Nega tive -?-?-?-?-?-?-?-?-?-?-?-?- Negative 140 28 -?-?-?-?-?-?-?-?-?-?-?-?- JV- healing well , no complaints. doing glucola today. has some fatigue, will call with cbc results. 08/28/23 -?-?-?-?-?-?-?-?-?-?-?-?- 30w 1d 140 lb 6 oz 112/76 Nega tive -?-?-?-?-?-?-?-?-?--?-?-?- Negative 151 30 -?-?-?-?-?-?-?-?-?-?-?-?- -NO VB, LOF. G ood FM. Bartholin gland is now healed. tdap. Larc 09/12/23 -?-?-?-?-?-?-?-?-?-?-?-?- 32w 2d 145 lb 3.2 oz 114/69 Ne gative -?-?-?-?-?-?-?-?-?-?-?-?- Negative 159 32 -?-?-?-?-?-?-?-?-?-?-?-?- MH-No VB, LOF. G ood FM. Denies concerns 09/26/23 -?-?-?-?-?-?-?-?-?-?-?-?- 34w 2d 145 lb 2 oz 122/63 Nega tive -?-?-?-?-?-?-?-?-?-?-?-?- Negative 150 34 -?-?-?-?-?-?--?-?-?-?-?-?- KW-no vb/lof/ctx . good fm. On ATB for Bartholin gland drainage. GBS next visit. 10/08/23 -?-?-?-?-?-?-?-?-?-?-?-?- 36w 0d 148 lb 115/76 Negative -?-?-?-?-?-?-?-?-?-?-?-?- Negative 145 36 Cephalic 3 -?-?-?-?-?-?-?-?-?-?-?-?- 60 -2 JV- bartho mikhail gland is re-infected but open and draining. it was probed with a sterile q-tip. patient declines further probing and catheter placement. it has an odor like bv and augmenting did not help. will try flagyl and re- culture the area. GBS also collected. 10/16/23 -?-?-?-?-?-?-?-?-?-?-?-?- 37w 1d 149 lb 4 oz 118/74 Nega tive -?-?-?-?-?-?-?-?-?-?-?-?- Negative 148 37 Cephalic 3 -?-?-?-?-?-?-?-?-?-?-?--?- 70 -2 MH-No LOF. Good Fm. Started new antibiotic last pm/still having large amount malodorous green drainage from bartholin incision. Call with worsening sx. 10/24/23 -?-?-?-?-?-?-?-?-?-?-?-?- 38w 2d 151 lb 123/69 Negative -?-?-?-?-?-?-?-?-?-?-?-?- Negative 140 38 Cephalic 4 -?-?-?-?-?-?-?-?-?-?-?-?- 70 -1 SM- irregu lar ctx no vb lof still having some drainage from bartholins 10/28/23 -?-?-?-?-?-?-?-?-?-?-?-?- 38w 6d 153 lb 128/73 Negative -?-?-?-?-?-?-?-?-?-?-?-?- Negative 140 39 4.5 -?-?-?-?-?-?-?-?-?-?-?-?- 60 -2 SM- irregu lar ctx posterior cervix, no vb lof good fm bartholins still intermittently draining, IOL setup saturday elective ROS Constitutional Constitutional: Denies change in weight, fatigue, fever(s), headache(s), poor appetite or weakness Eyes Eyes: Denies blurry vision, change in vision, seeing flashes or spots in vision ENT HEENT: Denies dizziness, headache(s), loss taste/smell or sore throat Cardiovascular Cardiovascular: Denies chest pain, dizziness, dyspnea, irregular heart rhythm, leg edema, palpitations, rapid heart rate or vomiting Respiratory/Chest Respiratory/Chest: Denies chest tightness, cough, dyspnea or breast pain Gastrointestinal Gastrointestinal: Denies abdominal pain, anorexia, constipation, cramping, diarrhea, hemorrhoids, vomiting or weight changes Genitourinary Genitourinary: Denies dysuria, flank pain, genital lesions, genital pain, urinary frequency or urinary urgency Musculoskeletal Musculoskeletal: Denies back pain, difficulty walking, joint pain, limited range of motion, muscle cramps or numbness Integumentary Integumentary: Denies lesions or unusual bruising Neurologic Neurologic: Denies abnormal movements, abnormal speech, dizziness, numbness, seizure-like activity or syncope Psychiatric Psychiatric: Denies anxiety, behavioral changes, change in appetite, change in libido, cognitive impairment, confusion, depression, difficulty concentrating, hallucinations or suicidal thoughts Endocrine Endocrinology: Denies excessive sweating, polydipsia or polyuria Hematologic/Lymphatic Hematologic/Lymphatic: Denies easy bleeding, easy bruising or lymphadenopathy Allergic/Immunologic Allergic/Immunologic: Denies itchy eyes, lip swelling, seasonal rhinorrhea, rhinitis, throat swelling, tongue swelling, eczemia, wheezing or asthma Vital Signs Vital Signs Vital Signs: 10/30/23 07:53 10/30/23 07:53 Pulse Rate 96 Blood Pressure 105/76 BP Systolic 105 BP Diastolic 76 Physical Exam Const alert, oriented x3, no apparent distress and healthy appearing General Appearance: cooperative; Negative for anxious HEENT normocephalic Face and Sinus: normal facial exam Eyes EOMs intact bilaterally and no scleral icterus General Eye: normal appearance of both eyes Neck full ROM and supple Lymph Lymphatic: no lymphadenopathy noted Chest Chest: abnormal inspection of the chest Resp normal respiratory effort Effort and Inspection: able to speak in complete sentences Cardio regular rate GI soft to palpation and non-tender Inspection: gravid Palpation: soft; Negative for tender external exam normal Manual OB Exam: other 4.5/80/-1 Back/Spine no CVA tenderness Extremity normal to inspection, full ROM and no clubbing, cyanosis or edema General Extremity: Negative for calf tenderness or edema Skin Lesions: no lesions Rashes: no rashes Psych mental status grossly normal Labs Labs Labs: Blood Type O POSITIVE Antibody Screen NEGATIVE Hct 33.8 % (37-47) L Hgb 11.4 g/dL (12.0-15.0) L Obstetrics Ultrasound Syphilis Total Ab Non-reactive Rubella IgG Antibody Reactive (Nonreactive) Hep Bs Antigen Non-Reactive (Nonreactive) Hepatitis C Antibody Non-Reactive (Nonreactive) Chlamydia DNA (CALLY) Negative (Negative) N.gonorrhoeae DNA (CALLY) Negative (Negative) HIV 1&2 Antibody Non-Reactive (Nonreactive) Glucose 1 Hr 50 gm 117 mg/dL (70-140) Rhogam given: No Assessment & Plan (1) Bartholin's gland abscess: COMMENT: ED 06/07 and cath placed and came out. 06/10:I&D w/replace cath and change to augmentin. 06/24 cath removed; stable 10/08/23- re-infected gland. starting flagyl and culture pending. Change to bactrim and started 10/15 (2) Bartholin gland cyst: COMMENT: draining from past opening, discussed word catheter placement or marsupilization if recurrent abscess (3) History of depression, currently : COMMENT: celexa + buspar this ; stable (4) Supervision of high risk , antepartum: COMMENT: [id number] KALI 11/05/23girl Kaye Camejo BF Broderic, normal glucola (5) : QUALIFIERS: Weeks of gestation: 38 weeks Qualified Code(s): Z3A.38 - 38 weeks gestation of COMMENT: Neg GBS. NL anatomy LR NIPT (6) Herpes simplex: COMMENT: start Valtrex at 36 weeks/taking PLAN: Plan Patient presents IOL, plan management for with pitocin/AROM. Pain management: plans epidural. GBS negative. Management of any complications: none I have reviewed the [facility] and made any clinically relevant updates.
[2023-10-30 08:34] LABS: Syphilis Antibodies Non-reactive
[2023-10-30] MEDS: Oxytocin 15 Units/NS 250ml 15 UNITS/250 ML IV.SOLN 2 UNITS IV (08:36)
[2023-10-30] MEDS: LACTATED RINGERS 500 ML 999 ML IV (09:03)
[2023-10-30 09:52] LABS: Amphetamine Urine VISTA NEGATIVE (<1000 ng/mL); Barbiturate Urine VISTA NEGATIVE (< 200 ng/mL); Benzodiazepine Urine VISTA NEGATIVE (< 200 ng/mL); Cocaine Urine VISTA NEGATIVE (< 300 ng/mL); Ecstacy Urine VISTA NEGATIVE (< 500 ng/mL); Methadone Urine VISTA NEGATIVE (< 300 ng/mL); PCP Urine VISTA NEGATIVE (< 25 ng/mL); THC Urine VISTA NEGATIVE (< 50 ng/mL); Vista UDS pH Range 6
[2023-10-30] MEDS: fentaNYL-bupivacaine (epidural) 100 ML BAG EPIDURAL (09:59)
--- NOTE | 2023-10-30 12:55 | PCM.PN.BLA ---
Progress Note pt is comfortable with epidural current tracing: FHT: Moderate variability reactive no decelerations category I tracing [place]: q2-4 min Contractions cx 4.5/80/-1 membranes ruptured and blood tinged fluid returned bladder drained with straight cath. reviewed tracing abnormalities since last note: no changes A/P: 39 week IOL continue pitocin
[2023-10-30] MEDS: Lactated Ringers 1,000 ML 200 ML IV (14:15)
--- NOTE | 2023-10-30 15:00 | EX.PCM.OBRPT ---
Assessment & Plan (1) Bartholin's gland abscess: COMMENT: ED 06/07 and cath placed and came out. 06/10:I&D w/replace cath and change to augmentin. 06/24 cath removed; stable 10/08/23- re-infected gland. starting flagyl and culture pending. Change to bactrim and started 10/15 (2) Bartholin gland cyst: COMMENT: draining from past opening, discussed word catheter placement or marsupilization if recurrent abscess (3) History of depression, currently : COMMENT: celexa + buspar this ; stable (4) Supervision of high risk , antepartum: COMMENT: [id number] KALI 11/05/23girl Kaye Camejo BF Broderic, normal glucola (5) : QUALIFIERS: Weeks of gestation: 38 weeks Qualified Code(s): Z3A.38 - 38 weeks gestation of COMMENT: Neg GBS. NL anatomy LR NIPT (6) Herpes simplex: COMMENT: start Valtrex at 36 weeks/taking Maternal Data Information KALI Calculator Estimated Delivery Date Method Current WG Current Estimate 11/05/23 Ultrasound #1 39w 1d Other Estimates 10/28/23 LMP (Certain) 40w 2d Final KALI: 11/05/23 Final KALI Source: US <20 weeks Vaginal Delivery Maternal Presentation Maternal Presentation: Elective Induction Type of Induction: Pitocin and Amniotomy Operative Information Date of Procedure: 10/30/23 Pre-Operative Diagnosis: 28 y/o @ 39 weeks 1 day, induction of labor for maternal exhaustion and persistent Bartholin gland abscess Post-Operative Diagnosis: 28 y/o @ 39 weeks 1 day, induction of labor for maternal exhaustion and persistent Bartholin gland abscess Type of Anesthesia: Epidural Drain: Swanson to straight drain Estimated Blood Loss: 100cc Time of Delivery: 14:38 Findings Description of Procedure: Patient began pushing and delivered the head in the MELITON presentation. The head was delivered atraumatically. The anterior and posterior shoulders delivered without complication followed by the rest of the and the was placed on the maternal abdomen. Delayed cord clamping was employed for approximately 60 seconds. Cord was clamped and cut and gentle traction was applied to the cord and the placenta delivered spontaneously immediately following it was noted to be intact with three-vessel cord. The perineum and vagina were inspected and noted to have no laceration. EBL was 100 cc. Patient and tolerated delivery well. Presentation: Vertex Amniotic Membrane Rupture Type: Artificial Time of Membrane Rupture: 12:15 Amniotic Fluid Description: Clear Placental Delivery Description: Expressed Placenta Disposition: [facility] Cord Vessel Description: 3 Vessels Cord Entanglement: None A Gender: Female (1 minute): 8 (5 minute): 9 Delayed Cord Clamping: Yes Post Vaginal Delivery Medications Given After Delivery: IV Pitocin Episiotomy Description: None Laceration: None Complication Complications: None Multi Select Codes Urinary/Genital Urinary/Genital CPT Codes: 08001 Vaginal Delivery [facility]
--- NOTE | 2023-10-30 15:02 | DCINST_ITS ---
Discharge Instructions Diet Discharge Diet: No restrictions Activity Discharge Activity: Return to Normal Activity, May Not Drive (while taking narcotic pain medications.) and May Shower May resume sexual activity in: 4-6 weeks Dressing / Incision Call your doctor if your incision/area has: Continuous Slow Oozing, Sudden Increased Bleeding, Increased Pain/ Swelling, Increased Redness and Foul Smelling Discharge Follow Up Care Please Follow Up With: Danya Sullivan DO When: Call [phone] to make an appointment with your doctor in 6 weeks. If you had elevated blood pressure or 4th degree laceration, you will need to be seen in 2 weeks. Test Results: Test results from this visit will be discussed in further detail at your follow- up appointment, if applicable. Discharge Plan Admission Admit Date/Time: 10/30/23 07:05 Attending Provider: Maria Fernanda Saab Primary Care Provider: Guillaume Brito Discharge Orders/Prescriptions Prescriptions: No Action citalopram [Celexa] 10 mg tablet 10 mg PO DAILY Qty: 30 6RF valacyclovir [Valtrex] 1 gram tablet 1,000 mg PO DAILY Qty: 30 3RF albuterol sulfate 1 PUFF inhaler 1 puff inhalation PRN PRN (Reason: Asthma) vit,[id number] 1 TABLET tablet 1 tab PO DAILY buspirone 10 mg tablet 10 mg PO TID PRN (Reason: anxiety) Qty: 60 5RF Referrals / Follow Up: Guillaume Brito DO [Primary Care Provider] -
[2023-10-30] MEDS: Oxytocin 15 Units/NS 250ml 15 UNITS/250 ML IV.SOLN 83 UNITS IV (15:23)
[2023-10-30] MEDS: Naproxen 500 MG Tablet PO (22:51)
[2023-10-31 03:00] VITALS: BP 119/70; PULSE 90; RESP 16; TEMP 36.3; O2SAT 97
[2023-10-31] MEDS: Acetaminophen 500 MG Tablet 1000 MG PO ×2 (06:14→14:35)
--- NOTE | 2023-10-31 07:53 | PCM.PN.OB ---
Subjective Subjective Patient doing well without complaints. Tolerating PO. Ambulating and voiding without difficulty. Feeding well. Denies chest pain, shortness of breath, calf pain/swelling, fevers, chills, lightheadedness. Objective Data Objective Data Vital Signs: Vital Signs Temp Pulse Resp BP Pulse Ox O2 Del Method 97.4 F L 90 16 119/70 97 Room Air 10/31/23 03:00 10/31/23 03:00 10/31/23 03:00 10/31/23 03:00 10/31/23 03:00 10/31/23 03:00 Oxygen Delivery Method Room Air Weight: 153 lb 10.595 oz Body Mass Index (BMI) 25.5 Intake & Output: Intake and Output for Last 24 Hours 10/29/23 10/30/23 10/31/23 23:59 23:59 23:59 Intake Total 2816.26 / 2816.26 Output Total 1974 Balance 841.26 / 841.26 Lab / Micro Data 10/30/23 07:40 Labs: Laboratory Results - last 24 hr 10/30/23 07:40: WBC 11.2 H, RBC 3.72 L, Hgb 11.4 L, Hct 33.8 L, MCV 90.9, MCH 30.6, MCHC 33.7, RDW Std Deviation 44.4 H, RDW Coeff of Ashanti 13.6, Plt Count 283, MPV 10.2, Immature Gran % (Auto) 2.100 H, Neut % (Auto) 70.1 H, Lymph % (Auto) 18.8 L, [place] % (Auto) 6.9, Eos % (Auto) 1.5, Baso % (Auto) 0.6, Absolute Neuts (auto) 7.8 H, Absolute Lymphs (auto) 2.10, Nucleated RBC % 0, Syphilis Total Ab Non-reactive, Blood Type O POSITIVE, Antibody Screen NEGATIVE 10/30/23 09:10: Urine Opiates Screen NEGATIVE, Urine Methadone Screen NEGATIVE, Ur Barbiturates Screen NEGATIVE, Ur Phencyclidine Scrn NEGATIVE, Ur Amphetamines Screen NEGATIVE, MDMA (Ecstasy) Screen NEGATIVE, U Benzodiazepines Scrn NEGATIVE, Urine Cocaine Screen NEGATIVE, U Cannabinoids Screen NEGATIVE, Ur Drug Screen Comment Physical Exam Const alert and oriented x3 HEENT normocephalic Eyes PERRL Neck full ROM Resp normal respiratory effort GI soft to palpation GI Narrative: FF below U Assessment & Plan (1) Spontaneous vaginal delivery: COMMENT: 10/30/23 JESENIA Restrepo (2) History of depression, currently : COMMENT: celexa + marivel this ; stable (3) Herpes simplex: PLAN: Plan s/p PPD # 1 1. routine post delivery care 2. breast feeding- support given 3. rh positive 4. rubella immune
[2023-10-31 09:30] VITALS: BP 112/65; PULSE 90; RESP 16; TEMP 36.2; O2SAT 100
[2023-10-31] MEDS: Naproxen 500 MG Tablet PO (09:30)
[2023-10-31] MEDS: busPIRone 5 MG Tablet 10 MG PO (09:31)
[2023-10-31 14:40] VITALS: BP 116/74; PULSE 109; RESP 16; TEMP 36.4; O2SAT 99
--- NOTE | 2023-11-01 11:43 | CASEMGMT ---
Social Work Assessment Labor and Delivery Unit Patient Address:[place] [address] Phone number: [phone] Date of Referral: 10/30/23 Time of Referral:? 820 Referred By: Danya Sullivan Date of Intervention: ??11/01/23 Time of Intervention:? 1000 Reason for Referral:? ETOH Sw completed chart review and acknowledges social work consult entered due to maternal ETOH. Sw presented to bedside and introduced self to mother of baby (MOB- Marti) and father of baby (FOB- Daryl). Sw explained reason for sw involvement and completed psychosocial assessment. Sw asked FOB to step out of the room momentarily so that MOB could complete Aroda Depression Scale. FOB left respectfully without issue. History obtained from: medical records, MOB and FOB Household composition: MOB states that currently residing in the home is PIERRE MCCLAIN, MOB's older son (Bashir: : 07/15/2020) and on the weekends FOB's daughters are with them (Kellen- 11 and Priscila- 10). Parents have one child together, baby who will now also be residing with them. Patient's parent/guardian status:? MOB states that she and FOB met on Facebook and started dating in December. MOB states that they had only been together for two months when she learned that she was . MOB stated that although this made her anxious, FOBrian has been on board the whole time and very supportive. While meeting with MOB privately she denies any concerns with domestic violence or intimate partner violence. ? Medical History: SARAHI is 28 year old female who is 2, para 1-now 2 following labor and delivery of . SARHAI received routine care during with [place]. SARAHI presented to hospital on 10/30/23 for induction of labor. SARAHI delivered baby via vaginal delivery at 39 weeks gestation. Baby girl, named, Kaye, was born weighing 7lb 8oz and her apgars were 8 and 9 at one and five minutes of life respectfully. SARAHI states that she is currently and it is going well, although she does feel overwhelmed. MOB stated that baby will be seen by Dr. Aguirre. Due to psychotropic medications that MOB was prescribed baby is being monitored for signs of withdrawal using Eat Sleep and Consol scoring methods every three hours. Per report baby has been doing well, has had scores of all 3's and should be ready for discharge today. Educational Status:?Both parents graduated from high school and deny any concerns with reading, learning or comprehension. SARAHI states that she did obtain her associates degree in Paraprofessional studies. Financial Status: Both parents are gainfully employed outside of the home. 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 SARAHI states that for PIERRE's new job he has to travel to [place] most of the week and is only home for one night. SARAHI stated that she is anxious to bring baby home with this new schedule, but has supports that can help her if necessary. SARAHI states that she works [facility] [place]. Supplies:??Parents have obtained all necessary baby supplies, including: car seat, safe sleep space, clothes, diapers and wipes. SARAHI states that she is getting a pump through [facility] on Monday 11/05. Childcare/Caregiver(s):? SARAHI states that she will be the primary caregiver to baby, along with PIERRE when he is home. MOB states that when both parents have to return to work either maternal or paternal grandma will babysit for them as neither of them are working. Transportation:??Both parents have their drivers license and reliable means of transportation. No transportation barriers at this time. Programs/Agencies Involved: SARAHI states that she is connected to insurance through [employer]. SARAHI was reminded that she has 30 days to get baby added to insurance. SARAHI stated that she has always been denied food stamps because she makes too much, however she may re-apply when she calls to get baby added to insurance since she has another dependent now. ??? Children Services/Legal Issues:???No history of involvement, no concerns warranting a referral to be made at this time. Behavioral Health Issues: ??Mental Health History:??PIERRE denies mental health history. SARAHI states that she has been diagnosed with anxiety and did struggle with anxiety/ depression after the of her first baby. SARAHI stated that she struggled mostly with and put a lot of pressure on herself to exclusively provide breast milk for her son. SARAHI states that her journey directly impacted her . SARAHI stated that instead of using appropriate coping skills she started to drink excessively daily. MOB states that she was able to recognize that this was not healthy and got help. MOB stated that she got connected to counseling supports though [facility] and they helped her with her mental health and alcohol abuse. MOB is prescribed BuSpar (PRN) and was prescribed Celexa in the past but did not take it during . MOB stated that she is willing to get connected to counseling and is interested in starting her Celexa again after she is finished breast feeding. SARAHI completed an Aroda Depression Scale and her score was a 12. Sw provided education and support. Sw encouraged MOB to get connected to counseling services and supports during her period due to her high score. MOB expressed understanding. ? 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 MOB states that she has not used any substances prior to and during . Family History:???SARAHI states that her father is a functioning alcoholic and he drinks everyday. FOB denies substance use in family. Parents deny significant mental health in their family. ?? Drug Screens: SARAHI drug screen was negative for all substances. ?? Family/Social Stressors:? MOB states that she is currently stressed over bringing home a baby and having a three year old at home. MOB states that she is also stressed due to PIERRE's work schedule. MOB stated that she has family she can call when she needs help. Sw provided support and talked about importance of reaching out if SARAHI needs to. Support Systems: SARAHI states that PIERRE is her biggest support, along with both of their mother's Depression/Shaken Baby/Safe Sleeping:? Sw educated MOB on signs and symptoms of baby blues and depression. Sw provided MOB with literature for her to review and strongly encouraged MOB to get connected to mental health supports within the community to help her during her journey. MOB expressed understanding and stated that she is open to getting re-connected to her counselor at [facility]. Sw educated MOB on shaken baby prevention and ABCs of safe sleep. MOB expressed understanding. ASSESSMENT:? MOB and baby admitted following labor and delivery. MOB with significant mental health and depression history. MOB aware and understanding of signs and symptoms to be on the lookout for regarding depression and anxiety. MOB was connected to counseling services in the past that helped her with her anxiety and struggles with alcohol abuse during that time. MOB receptive to getting reconnected due to concerns after this . MOB has obtained all necessary baby supplies and has adequate supports available to her. MOB talkative and open with sw during psychosocial assessment. MOB made good eye contact and was observed to provide loving and appropriate hands on care of baby. PLAN:? MOB and baby to be discharged when medically ready. ?No other services requested or indicated. Rakesh Santillan, SUPERVISOR [employer]AL[employer]ING, INHALATION THERAPY TEACHER
== END 2023-10-31 17:50 | disposition home or self-care (01) | DRG 806 ==
PROVIDERS: Obstetrics & Gynecology; Admitting Provider Advanced Practice Midwife; PCP Family Medicine; Referring Provider Advanced Practice Midwife; Visit Provider Advanced Practice Midwife
DX: O23.593 Infection of other part of genital tract in pregnancy, third trimester (principal); Z37.0 Single live birth; O98.32 Other infections with a predominantly sexual mode of transmission complicating childbirth; O26.813 Pregnancy related exhaustion and fatigue, third trimester; A60.9 Anogenital herpesviral infection, unspecified; Z3A.39 39 weeks gestation of pregnancy; Z79.2 Long term (current) use of antibiotics; Z79.899 Other long term (current) drug therapy; Z87.891 Personal history of nicotine dependence
CPT/HCPCS: 59025; 59050; 80307; 85025; 86780; 86850; 86900; 86901; 99221; J7120; G0378

== ENCOUNTER → 2024-01-30 | Outpatient (CLI) | payer MEDICAID, SELFPAY ==
--- OUTSIDE RECORDS SUMMARY | 2024-01-30 20:11 | XMS RPT_ITS | CCD ---
Author Name Unknown Address [address] [place] [address] Organization [facility] Care Team Providers Care Ballistics Professor Name Role Phone Guillaume Brito Primary Care Provider NO PRIMARY CARE, Primary Care Unavailable ZEENAT HUNG Referring Unavailable DAMARIS SPEARS Attending Unavailable Medications Current Medications Medication Drug Class(es) Dates Sig (Normalized) Sig (Original) acetaminophen 325 mg / HYDROcodone bitartrate 5 mg oral tablet (2 sources) Opioid Agonist Start: 09-01-2019 End: 09-04-2019 take 1 tablet by mouth every six hours as needed for pain HYDROcodone-acetam inophen (NORCO) 5-325 MG per tablet Indications: Unspecified fracture of fifth metacarpal bone, left hand, initial encounter for closed fracture Take 1 tablet by mouth every 6 hours as needed for Pain for up to 3 days. 12 tablet 0 09/01/2019 09/04/2019 Active Completed/Discontinued Medications Medication Drug Class(es) Dates Sig (Normalized) Sig (Original) cyclobenzaprine hydrochloride 10 mg oral tablet (2 sources) Muscle Relaxant Start: 07-21-2019 End: 07-31-2019 cyclobenzaprine (FLEXERIL) tablet 10 mg ibuprofen 600 mg oral tablet (2 sources) Nonsteroidal Anti-inflammatory Drug Start: 07-21-2019 End: 09-01-2019 take 1 tablet by mouth every six hours as needed for pain ibuprofen (ADVIL;MOTRIN) 600 MG tablet Take 1 tablet by mouth every 6 hours as needed for Pain 20 tablet 0 07/21/2019 09/01/2019 Discontinued 2 ml ketorolac tromethamine 30 mg/ml cartridge (1 source) Nonsteroidal Anti-inflammatory Drug, Cyclooxygenase Inhibitor Start: 07-21-2019 End: 07-21-2019 ketorolac (TORADOL) injection 60 mg 10 ml lidocaine hydrochloride 10 mg/ml injection (1 source) Antiarrhythmic, Amide Local Anesthetic Start: 09-01-2019 End: 09-01-2019 lidocaine PF 1 % injection 5 mL Problems Active Problems Problem Classification Problem Date Documented Da te Episodic/Chronic Asthma (3 sources) Asthma; Translations: [Asthma] 04-29-2019 Chronic Unclassified (1 source) Closed fracture of fifth metacarpal bone of left hand; Translations: [Unspecified fracture of fifth metacarpal bone, left hand, initial encounter for closed fracture] Past or Other Problems Problem Classification Problem Date Documented Da te Episodic/Chronic Fracture of upper limb (1 source) Fracture of hand; Translations: [Closed fracture of left hand with routine healing, subsequent encounter] Episodic Other infections; including parasitic (3 sources) History of sexually transmitted disease; Translations: [History of herpes genitalis] Onset: 10-25-2016 10-25-2016 Episodic Sprains and strains (1 source) Low back strain; Translations: [Strain of lumbar region, initial encounter] Episodic Viral infection (3 sources) Genital herpes simplex; Translations: [Herpes genitalia] Onset: 11-18-2015 Resolved: 04-29-2019 04-29-2019 Chronic Results Test Name Value Interpretation Reference Range Facil ity Vital Signs Date Time Vital Sign Value Performing Clinician Faci lity 09-01-2019 11:49-0400 BMI (Body Mass Index) 24.03 kg/m2 [facility] [place] [place] 09-01-2019 11:49-0400 Body Temperature 98.01 [degF] [place], [place] 09-01-2019 11:49-0400 Body weight 63.5 kg [place], [place] 09-01-2019 11:49-0400 BP Diastolic 90 mm[Hg] [place] 09-01-2019 11:49-0400 BP Systolic 148 mm[Hg] [place], [place] 09-01-2019 11:49-0400 Pulse (Heart Rate) 127 /min [place], [place] 09-01-2019 11:49-0400 Pulse Oximetry 99 % [place], [place] 09-01-2019 11:49-0400 Respiratory Rate 16 /min [facility] [place] 09-01-2019 11:47-0400 Height 162.6 cm [facility] [place] 07-21-2019 15:24-0400 BMI (Body Mass Index) 23.3 kg/m2 Guillaume Waller [facility], [place] 07-21-2019 15:24-0400 Body Temperature 98.49 [degF] Guillaume Brito [facility], [place] 07-21-2019 15:24-0400 Body weight 63.5 kg [facility] [place] 07-21-2019 15:24-0400 BP Diastolic 80 mm[Hg] [facility] [place] 07-21-2019 15:24-0400 BP Systolic 122 mm[Hg] [place] 07-21-2019 15:24-0400 Pulse (Heart Rate) 102 /min [place] 07-21-2019 15:24-0400 Pulse Oximetry 99 % [facility] [place] 07-21-2019 15:24-0400 Respiratory Rate 16 /min [place] Encounters Encounter Date Encounter Type Care Provider Facility Start: 06-13-2023 End: 06-13-2023 ambulatory MD NO PRIMARY CARE [facility] Start: 09-22-2019 End: 09-22-2019 Subsequent hospital visit by physician Devonte Solano Work Phone: [facility] Radiology Procedures Date Procedure Procedure Detail Performing Clinician Start: 09-22-2019 Radex hand minimum 3 views Devonte Solano Work Phone: Start: 09-01-2019 Radex hand minimum 3 views Manuelito Buck Work Phone: Start: 09-01-2019 Urine test visual color cmprsn meths Manuelito Buck Work Phone: Start: 07-21-2019 Urine test visual color cmprsn meths Rita Ordoñez Work Phone: Plan of Treatment Date Care Activity Detail Author Start: 01-15-2029 DTaP/Tdap/Td vaccine (7 - Td) DTaP/Tdap/Td vaccine (7 - Td) [place], [place] Start: 07-19-2019 Influenza vaccination Flu vaccine (# 1) [place], [place] Start: 2017 Cervical cancer screen Cervical canc er screen [place] Start: 2012 Chlamydia screen Chlamydia screen [place], [place] Start: 2011 HIV screen HIV screen [place], [place] Start: 2009 Varicella Vaccine (1 of 2 - 13+ 2-dose series) Varicella Vaccine (1 of 2 - 13+ 2-dose series) [place], [place] Start: 2002 Pneumococcal 0-64 ye ars Vaccine (1 of 1 - PPSV23) Pneumococcal 0-64 years Vaccine (1 of 1 - PPSV23) [place] End: 07-21-2019 C. Trachomatis / N. Gonorrhoeae, DNA C. Trachomatis / N. Gonorrhoeae, DNA Microbiology Add-On One Time for 1 Occurrences starting 07/21/2019 until 07/21/2019 [place] Immunizations Immunization Date Immunization Notes Care Provider Fa cility 01-15-2019 tetanus toxoid, redu kamila diphtheria toxoid, and acellular pertussis vaccine, adsorbed [place], [place] 08-18-2012 human papilloma viru s vaccine, quadrivalent [place] 02-04-2012 human papilloma viru s vaccine, quadrivalent [place] 12-06-2011 human papilloma viru s vaccine, quadrivalent [place] 07-10-2001 diphtheria, tetanus toxoids and acellular pertussis vaccine [place] 07-10-2001 measles, mumps and rubella virus vaccine [place] 07-10-2001 poliovirus vaccine, inactivated [place] 01-07-1998 diphtheria, tetanus toxoids and acellular pertussis vaccine [place] 01-07-1998 haemophilus influenz ae type b vaccine, PRP-T conjugate [facility] 01-07-1998 poliovirus vaccine, inactivated [facility] 05-25-1997 measles, mumps and rubella virus vaccine [facility], [place] 1996 diphtheria, tetanus toxoids and acellular pertussis vaccine [facility] 1996 haemophilus influenz ae type b vaccine, PRP-T conjugate [facility] 1996 hepatitis B vaccine, pediatric or pediatric/adolescent dosage [facility] 1996 diphtheria, tetanus toxoids and acellular pertussis vaccine [facility] 1996 haemophilus influenz ae type b vaccine, PRP-T conjugate [facility] 1996 poliovirus vaccine, inactivated [facility] 1996 diphtheria, tetanus toxoids and acellular pertussis vaccine [facility] 1996 haemophilus influenz ae type b vaccine, PRP-T conjugate [facility] 1996 hepatitis B vaccine, pediatric or pediatric/adolescent dosage [facility] 1996 poliovirus vaccine, inactivated [facility] 1996 hepatitis B vaccine, pediatric or pediatric/adolescent dosage [place] Payers Date Payer Category Payer Private Health Insurance [facility] xxxxxxxxx 2015-[facility] [phone] [address] [place] [address] xxxxxxxxx [id number] 1996 Unknown [id number] Unknown [id number] Social History Date Type Detail Facility Start: 09-01-2019 End: 09-16-2019 Tobacco smoking status NHIS Former smoker [place] End: 04-18-2017 History of tobacco use Current [place] End: 04-18-2017 History of tobacco use Cigarette [place] Start: 09-01-2019 End: 09-16-2019 Cigarettes smoked current (pack per day) - Reported [place] Start: 09-01-2019 End: 09-16-2019 Alcohol intake Yes [place] Start: 04-29-2019 History SDOH Alcohol Frequency 3 [place] Start: 04-29-2019 History SDOH Alcohol Std Drinks 2 [place] Start: 04-29-2019 History SDOH Social Connections Phone 4 [place] Start: 04-29-2019 History SDOH Social Connections Meetings 1 [place] Start: 04-29-2019 History SDOH Social Connections Living 8 [place] Start: 04-29-2019 History SDOH IPV Fear [address] [place], [place] Start: 09-18-2017 Alcohol Comment 1 shot a month. [place], [place] Sex Assigned At Not on file [place] Goals Date Patient Goal Desired Activity /State Discharge Instructions * Attachments The following attachments cannot be sent through Care Everywhere. * Hand Fracture (Maltese) documented in this encounter* Instructions* Rita Ordoñez PA-C - 07/21/2019 Please follow-up with your primary care physician. Take ibuprofen as needed for pain, Flexeril as needed for muscle tightness/spasm in the evening, this could make you drowsy. Ice the back and perform light stretching exercises. Return to the ED sooner for any new or worsening symptoms. * Attachments The following attachments cannot be sent through Care Everywhere. * Back: Strain (Maltese) documented in this encounter Assessments Diagnosis Unspecified fracture of fifth metacarpal bone, left hand, initial encounter for closed fracture- Primary Diagnosis Strain of lumbar region, initial encounter- Primary Diagnosis Closed fracture of left hand with routine healing, subsequent encounter Advance Directives No Advanced Directives Records FoundDocuments on File Type Date Recorded Patient Print Line Supervisor Expl anation Advance Directives and Living Will Power of Day Camp Counselor Summary Purpose Family History No Family History Records FoundNo Family History Records Found Additional Source Comments Reason for Visit (unrecogniz ed section and content) Reason Comments Back Pain INFORMATION SOURCE (unrecogn ized section and content) DATE CREATED AUTHOR AUTHOR'S YASMIN JUAREZ 06/14/2023 [facility] FOR RECORDS PERTAINING TO PATIENTS WHO ARE OR HAVE BEEN ENROLLED IN A CHEMICAL DEPENDENCY/SUBSTANCEABUSE PROGRAM, SOME INFORMATION MAY BE OMITTED. This clinical summary was aggregated from multiple sources. Caution should be exercised in using it in the provision of clinical care. This summary normalizes information from multiple sources, and as a consequence, information in this document may materially change the coding, format and clinical context of patient data. In addition, data may be omitted in some cases. CLINICAL DECISIONS SHOULD BE BASED ON THE PRIMARY CLINICAL RECORDS. [facility]. provides no warranty or guarantee of the accuracy or completeness of information in this document.
== END | disposition home or self-care (01) ==
LOC: LABSPEC 11:46
PROVIDERS: PCP Family Medicine; Referring Provider Obstetrics & Gynecology; Visit Provider Obstetrics & Gynecology
DX: N89.8 Other specified noninflammatory disorders of vagina (principal)
CPT/HCPCS: 87070; 87205

== ENCOUNTER → 2024-02-11 | Outpatient (CLI) | payer MEDICAID, SELFPAY ==
--- NOTE | 2024-02-11 16:07 | US_ITS ---
STUDY: ULTRASOUND OF THE FEMALE PELVIS - COMPLETE REASON FOR EXAM: Female, 28 years old. AUB LMP: Unknown TECHNIQUE: Transabdominal and Transvaginal TECHNICAL QUALITY: Adequate. COMPARISON: None. FINDINGS: The uterus is retroverted and is in a midline position. The uterus measures 7.8 cm x 5.2 cm x 3.9 cm. Normal uterine cervix. The endometrium measures 3.6 mm in thickness, and is hyperechoic. There is no demonstrated endometrial mass. There is no demonstrated myometrial mass. I.U.D. - The patient does not have an I.U.D. The right ovary is visualized. The right ovary measures 2.5 cm x 1.8 cm x 1.2 cm. There is no right ovarian cyst or ovarian mass. There is no visualized right adnexal mass or complex lesion. There is normal arterial and normal venous vascularity. The left ovary is visualized. The left ovary measures 3.6 cm x 2.6 x 2.3 cm. There is no left ovarian cyst or ovarian mass. There is a 2.6 cm x 2.2 cm x 1.7 cm cyst in the left ovary. There is normal arterial and normal venous vascularity. There is a moderate amount of fluid in the cul-de-sac. US/Transvaginal Non- IMPRESSION: 2.6 cm x 2.2 cm x 1.7 cm left ovarian cyst. Electronically Signed: Marko Calvo MD at 13:59 EDT ,
== END | disposition home or self-care (01) ==
LOC: US 16:06
PROVIDERS: PCP Family Medicine; Referring Provider Nurse Practitioner Women's Health; Visit Provider Nurse Practitioner Women's Health
DX: N93.9 Abnormal uterine and vaginal bleeding, unspecified (principal)
CPT/HCPCS: 76830; 76856